=== PATIENT | male | born 1950 | race Caucasian/White ===

== ENCOUNTER → 2020-10-28 15:04 | Outpatient (BNVA) | payer BC, SELFPAY | PROVIDERS: Visit Provider Urology | DX: N40.1 Benign prostatic hyperplasia with lower urinary tract symptoms (principal); N13.8 Other obstructive and reflux uropathy; R39.14 Feeling of incomplete bladder emptying | CPT/HCPCS: 51798 ==

== ENCOUNTER → 2022-03-24 15:24 | Outpatient (BNVA) | payer BC, SELFPAY | PROVIDERS: PCP Family Medicine; Visit Provider Urology | DX: R97.20 Elevated prostate specific antigen [PSA] (principal) | CPT/HCPCS: 51798 ==

== ENCOUNTER → 2022-05-26 15:52 | Outpatient (BNVA) | payer BC, SELFPAY | PROVIDERS: PCP Family Medicine; Visit Provider Urology | DX: Z13.89 Encounter for screening for other disorder (principal) ==

== ENCOUNTER 2022-12-20 15:09 | Outpatient (AMB) | payer BC, SELFPAY ==
--- NOTE | 2022-12-20 15:14 | MHC.OFFVIS ---
Intake Intake Visit Reasons: PSA Follow up (set) Intake Note: Patient is present for Follow Up Urology Med: Dutasteride Antibiotic Allergy: NONE Blood Thinner: None Pharmacy: [facility] PVR: 0ML Allergies succinylcholine Allergy (Unknown, Verified 03/21/22 16:01) Unknown wasp venuum and red ants Allergy (Unknown, Uncoded 03/21/22 16:01) Unknown Medication List - Last Reconciled 12/20/22 by Jamie Lux MD dutasteride 0.5 mg PO DAILY 30 days flurazepam 15 mg PO BEDTIME PRN omeprazole 20 mg PO DAILY trazodone 50 mg PO BEDTIME HPI HPI Comments History of Present Illness Details Gregory NGUYEN is a very pleasant male. He is a patient of Dr. Ambriz. He is seen for the following urologic conditions. - elevated PSA - erectile dysfunction On dutasteride 1 tab per week PSA 3.1 up from 2.1 in April Discussed findings He would like to check testosterone in 6 months Did discuss use of tadalafil for erections 2+ prostate Elevated PSA/Abnormal HEAVEN: He presents for further evaluation of elevated PSA - PSA in range Will follow. Current management is medication with 5AR. Laboratory investigations include 09/07 3.8 up from 2.6 a year ago - US with 65gm prostate 10/07 exosome test. Intelliscore 37 11/07 PNBx - clear 05/09 2.4, 07/11 1.8, 10/09 2.8, 02/10 3.6, 05/12 2.1, 11/11 3.1 Symptoms include 09/07 , incomplete emptying, nocturia, x 2, and are worsening. Overall symptoms are mild. Therapeutic plan will be continued surveillance, medications for BPH. Review of Systems Const Denies chills and Denies fever(s) Card Reports no additional complaints and Denies syncope Resp Denies cough GI Denies abdominal pain and Denies heartburn Reports as per HPI and Denies change in libido Neuro Denies syncope Psych Denies change in libido Endo Denies change in libido Physical Exam Const General: cooperative, healthy appearing, comfortable and no acute distress Orientation/consciousness: patient oriented x3 HEENT Face and sinus: Yes normal facial exam Mouth: moist mucous membranes Neck Neck: Yes normal visual inspection, Yes full ROM and Yes trachea midline Chest Chest palpation & inspection: normal inspection of the chest Resp Effort & Inspection: normal respiratory effort, able to speak in complete sentences and no respiratory distress GI Inspection: Yes normal to inspection Rectal Exam - Male: Yes normal sphincter tone and Yes prostate normal Male General Exam: Yes normal external exam Penis: normal penis and circumcised Meatus: meatus normal Scrotum: scrotum normal Testes: Testes normal Back/Spine/Pelvis Cervical Spine: normal cervical lordosis Thoracic/Lumbar Spine: thoracic and lumbar spine normal to inspection Skin General skin exam: no rashes or lesions noted Neuro General: patient oriented x3, gait normal, tone normal and moves all extremities Extrem General: Yes normal to inspection and Yes capillary refill normal Office Procedures Post Void Residual Post Residual Void Post Void Residual (PVR): 0 [id number] Void Residual by ultrasound Assessment & Plan Assessment & Plan (1) Elevated PSA: Code(s): R97.20 - Elevated prostate specific antigen [PSA] (2) BPH w urinary obs/LUTS: Code(s): N40.1 - Benign prostatic hyperplasia with lower urinary tract symptoms; N13.8 - Other obstructive and reflux uropathy (3) Erectile dysfunction: Code(s): N52.9 - Male erectile dysfunction, unspecified Plan Off dutasteride Six month follow-up labs Orders: Orders Prostate Specific Antigen 6 Months R97.20 - Elevated prostate specific antigen [PSA] Testosterone, Free/Total 6 Months R97.20 - Elevated prostate specific antigen [PSA] AMB Post Void Residual by ultrasound Today N40.1 - Benign prostatic hyperplasia with lower urinary tract symptoms, R39.14 - Feeling of incomplete bladder emptying Patient Instructions: Imaging studies, laboratory and physical exam results were discussed and reviewed in detail. No major barriers to patient understanding were identified. An opportunity to ask questions regarding the treatment plan was provided. All questions were answered. The patient expressed understanding and agreement with the above treatment plan. The patient is aware they should contact our office by phone for worsening of their current condition or the appearance of new urologic symptoms. Compliance is encouraged with any medications and followup testing that is ordered. It is a privilege to participate in the urologic care of your patient. If you have any questions or concerns regarding treatment for the above conditions, or other urologic issues, please do not hesitate to contact me. The office telephone contact is [phone]. This note is constructed using voice recognition software. While every effort has been made to ensure accuracy mortgage loan underwriter errors may have been included. Yours sincerely, Dr Jamie Lux MD, [facility] - Urology Providers of Expert, Compassionate Care for the Genitourinary System Coding Level of Care Code Est Pt Level 4 (89761) Diagnoses Elevated PSA R97.20 BPH w urinary obs/LUTS N40.1; N13.8 Erectile dysfunction N52.9 CPT Codes Post Residual Void - PVR CPT Code: 52579-Tqce Void Residual by ultrasound ([id number])
== END 2022-12-20 15:46 | disposition home or self-care (01) ==
LOC: HO.HUSH 15:09
PROVIDERS: PCP Family Medicine; Visit Provider Urology
DX: R97.20 Elevated prostate specific antigen [PSA] (principal); N40.1 Benign prostatic hyperplasia with lower urinary tract symptoms; N13.8 Other obstructive and reflux uropathy; N52.9 Male erectile dysfunction, unspecified
CPT/HCPCS: 99214

== ENCOUNTER → 2022-12-20 15:09 | Outpatient (BNVA) | payer BC, SELFPAY | PROVIDERS: PCP Family Medicine; Visit Provider Urology | DX: N40.1 Benign prostatic hyperplasia with lower urinary tract symptoms (principal); N13.8 Other obstructive and reflux uropathy; R97.20 Elevated prostate specific antigen [PSA]; R39.14 Feeling of incomplete bladder emptying; N52.9 Male erectile dysfunction, unspecified; Z79.899 Other long term (current) drug therapy | CPT/HCPCS: 51798 ==

== ENCOUNTER 2023-04-24 12:35 | Day surgery (SDC) | payer MEDICARE, SELFPAY ==
[2023-04-24 13:12] VITALS: BP 130/87; PULSE 77; RESP 16; TEMP 36.7; O2SAT 99; BMI 19.5
--- NOTE | 2023-04-24 13:21 | P.CONAN_ITS ---
HPI - Anesthesia Eval Consult details Narrative: 72 yo male patient for EGD, Colonoscopy PMF Active Problems Active Problems: All Active Problems (Updated 04/24/23 @ 13:21 by Joselyn Rodas MD) Erectile dysfunction (Acute) Elevated PSA (Acute) Incomplete emptying of bladder due to benign prostatic hyperplasia (Acute) BPH w urinary obs/LUTS (Acute) PSEUDOCHOLINESTERASE DEFICIENCY Hearing loss Past Medical History Medical History History of fractured pelvis Pseudocholinesterase deficiency Osteoarthritis Hearing loss GERD (gastroesophageal reflux disease) Family History Family history of problems with anesthesia: No Surgical History Surgical History H/O removal of cyst History of shoulder surgery History of arthroplasty of right knee Hx of colonoscopy History of Problems with Anesthesia: Yes (Pseudocholinesterase deficiency.) Social History Social History Advance Directives: No Advance Directives Information Provided: Yes Meds Allergies Allergy/AdvReac Type Severity Reaction Status Date / Time succinylcholine Allergy Unknown Unknown Verified 03/21/22 16:01 wasp venuum and red ants Allergy Unknown Unknown Uncoded 03/21/22 16:01 Active Medications: Current Medications Sodium Biphosphate/Sodium Phosphate (Sodium Phosphate,Gillespie-Dibasic 133 Ml Enema) 133 ml AL ONCE PRN PRN Reason: Poor Colonoscopy Prep Results Home Medications Medication Instructions Recorded Confirmed Last Taken Type flurazepam 15 mg capsule 15 mg PO BEDTIME PRN insomnia 10/28/20 12/20/22 Unknown History omeprazole 20 mg capsule,delayed 20 mg PO DAILY 10/28/20 12/20/22 Unknown History release trazodone 50 mg tablet 50 mg PO BEDTIME 10/28/20 12/20/22 Unknown History Exam Height,Weight and Vital Signs: Height 6 ft 1 in Weight 67.132 kg Last Vital Signs Temp 98.1 F 04/24/23 13:12 Pulse 77 04/24/23 13:12 Resp 16 04/24/23 13:12 BP 130/87 04/24/23 13:12 Pulse Ox 99 04/24/23 13:12 O2 Del Method Room Air 04/24/23 13:12 Airway Mallampati Class: II TM Dist: >3cm Neck ROM: Full Loose/Missing/Broken Teeth: No (Denies broken, loose, missing teeth) Heart: RRR Lungs: CTAB Assessment and Plan Assessment Anesthesia Assessment: Anesthesia Plan Discussed and Chart Reviewed Final Anesthetic Review Family History of Problems with Anesthesia: No History of Problems with Anesthesia: Yes (Pseudocholinesterase deficiency.) NPO: Yes ASA Class: II Final Preanesthetic Review: No Changes in Pt Med Stat, Meds/Allgs Chart Reviewed, Consent Obtained/Reviewed and Anes Risks/Benef Reviewed Patient Risk: Intermediate Procedure Risk: Low Assessment/Block/Sedation in SS: Assess/Block/Sedation-SS Anesthetic Plan Anesthetic Plan: MAC: Disposition: Standard PACU
--- NOTE | 2023-04-24 15:58 | PM.OP ---
Brief Operative Note Date of Service: 04/24/23 Pre-op diagnosis: GERD, Nash's, Screening Post-op diagnosis: other (Same, Hiatal hernia, Colon polyps) Procedure: EGD with biopsies, Colonoscopy to the cecum with bx/removal of polyp at 50cm and cold snare polypectomy of Rectal polyp with placement of 3 Resolution clips Surgeon: Lex Vallecillo MD Anesthesia: MAC Was an Computer Hardware Technician used for this Procedure?: No Estimated blood loss (mL): 2.0 Pathology: other (A. EG Junction at 40cm B. Gastric antrum C. Polyp at 50cm D. Rectal polyp) Condition: stable Disposition: PACU
[2023-04-24 16:00] VITALS: BP 101/73; PULSE 76; RESP 16; TEMP 36.4; O2SAT 97
[2023-04-24 16:05] VITALS: BP 109/77; PULSE 74; RESP 16; O2SAT 99
[2023-04-24 16:15] VITALS: BP 100/60; PULSE 63; RESP 20; TEMP 36.8; O2SAT 97
--- NOTE | 2023-04-24 21:01 | OP_ITS ---
DATE OF SERVICE: 04/24/2023 SURGEON: Lex Vallecillo MD INDICATIONS: The patient presents for evaluation of gastroesophageal reflux, Nash's esophagus, and colorectal cancer screening. Full consent has been obtained from him for this, including risks of bleeding and perforation. PREOPERATIVE DIAGNOSIS: POSTOPERATIVE DIAGNOSIS: PROCEDURE PERFORMED: Esophagogastroduodenoscopy with biopsies, and colonoscopy to the cecum with biopsy and removal of polyp at 50 cm and cold snare polypectomy of rectal polyp with placement of 3 resolution clips. ESTIMATED BLOOD LOSS: COMPLICATIONS: ANESTHESIA: Monitored anesthesia care. ASSISTANTS: SPECIMENS: PREOPERATIVE DIAGNOSES: Gastroesophageal reflux, history of Nash's esophagus, history of tubular adenoma of the colon, and colorectal cancer screening. POSTOPERATIVE DIAGNOSES: Gastroesophageal reflux, history of Nash's esophagus, history of tubular adenoma of the colon, colorectal cancer screening, small hiatal hernia, mild antral gastritis, colon polyps, diverticulosis, and internal hemorrhoids. DESCRIPTION OF PROCEDURE: The patient was placed in the left lateral decubitus position. The Olympus video gastroscope was passed in the posterior oropharynx and upper esophagus under direct vision. The scope was passed slowly to the distal esophagus. The gastroesophageal junction appeared at 40 cm. There was a very minimal irregularity consistent with reflux and possible small areas of Nash esophagus, but without any evidence of esophagitis nor any lesions. The scope entered the stomach. There was a small hiatal hernia. The scope was advanced to the pylorus and the duodenum was cannulated to the descending portion. The duodenum including the bulb appeared normal without mass or ulceration. The scope was withdrawn back in the stomach. The gastric antrum and body had some mild areas of erythema and edema but no erosions or ulceration. There was good peristalsis. Biopsies were obtained from the antrum. The scope was retroflexed visualizing the proximal stomach carefully, which appeared normal, without any sign of mass or ulceration, other than some hyperplastic appearing polyps. The scope was straightened. The scope was withdrawn back to the esophagus. Biopsies were obtained at the EG junction at 40 cm. Proximal to this, the esophageal mucosa appeared normal. The scope was withdrawn from the patient. He was turned around for the colonoscopy. The digital rectal exam revealed no abnormalities. The Olympus video pediatric colonoscope was entered into the rectum and advanced to the cecum with the assistance of abdominal wall pressure. Once in the cecum, I did identify normal-appearing cecal pouch with appendiceal orifice and a normal-appearing ileocecal valve. The entire cecum and ileocecal valve appeared normal. There was transillumination of light deep in the right lower quadrant. The scope was slowly withdrawn, assessing all mucosal surfaces carefully. Preparation was excellent. At 50 cm was a flat, approximately 4 mm polyp, which was biopsied and completely removed with the cold biopsy forceps. There was a mild amount of sigmoid diverticulosis. I did not visualize any sign of colitis nor angiodysplasia. In the rectum was an approximately 6 to 8 mm polyp in the distal portion. This was removed by cold snare polypectomy and recovered by suction. Post- polypectomy there did not appear to be any residual polyp. However, there was some persistent oozing and therefore 3 resolution clips were applied to the polypectomy site with good deployment and good hemostasis. The area was observed and irrigated for 5 minutes. There was no further bleeding noted. The scope was retroflexed visualizing some internal hemorrhoids, but no other pathology. The rectal mucosa appeared normal. The scope was straightened and withdrawn from the patient. He tolerated both procedures well and was returned to the recovery area in stable condition. IMPRESSION: 1. Small hiatal hernia, gastroesophageal reflux, history of Nash's esophagus. 2. Mild gastritis. 3. Colon polyps. 4. Diverticulosis. 5. Internal hemorrhoids. PLAN: The results of the pathology will be checked. He will continue his daily omeprazole for reflux. I would recommend a repeat upper endoscopy and colonoscopy in 5 years for further screening and surveillance. He was advised not to use any aspirin or NSAIDs for 1 week. He will see me otherwise on a p.r.n. basis. MD YASMEEN Linares/MAURIZIO / [phone] [id number]
== END 2023-04-24 16:40 | disposition home or self-care (01) ==
PROVIDERS: PCP Family Medicine; Visit Provider Internal Medicine
PROC: (CPT 43239; principal; 2023-04-24 13:40)
DX: K29.70 Gastritis, unspecified, without bleeding (principal); K21.9 Gastro-esophageal reflux disease without esophagitis; K44.9 Diaphragmatic hernia without obstruction or gangrene; Z12.11 Encounter for screening for malignant neoplasm of colon; D12.5 Benign neoplasm of sigmoid colon; K62.1 Rectal polyp; K57.30 Diverticulosis of large intestine without perforation or abscess without bleeding; K64.8 Other hemorrhoids; Z79.899 Other long term (current) drug therapy
CPT/HCPCS: 43239; 45385; 45380; 88305; 88342; J2704

== ENCOUNTER 2023-06-23 14:27 | Outpatient (AMB) | payer MEDICARE, SELFPAY ==
--- NOTE | 2023-06-23 14:20 | A.OFFVIS_ITS ---
Intake Intake Visit Reasons: 6m PSA(set) Intake Note: Patient presents today for a 6 month follow-up Meds- None Allergies to Antibiotic- No Known Allergies Blood Thinner- None Patient stated he stopped taking Dutasteride last summer 2022, and the provider is aware. Venetian Blind Worker Required: No Accompanied by: Self / Same As Patient Allergies succinylcholine Allergy (Unknown, Verified 06/23/23 14:23) Unknown wasp venuum and red ants Allergy (Unknown, Uncoded 06/23/23 14:23) Unknown Medication List - Last Reconciled 06/23/23 by Jamie Lux MD dutasteride 0.5 mg PO DAILY 30 days flurazepam 15 mg PO BEDTIME PRN omeprazole 20 mg PO DAILY trazodone 50 mg PO BEDTIME HPI HPI Comments History of Present Illness Details Gregory NGUYEN is a very pleasant male. He is a patient of Dr. Ambriz. He is seen for the following urologic conditions. - elevated PSA - erectile dysfunction Telemedicine Evaluation 15 min Consultation D[employer]Visual[employer] Nicholas Video attempted Discussed findings Testosterone in range Is willing to trial tadalafil 5 mg daily 2+ prostate Erectile dysfunction has nocturnal erections Less activity during the day Does think that finasteride use had some impairment Elevated PSA/Abnormal HEAVEN: He presents for further evaluation of elevated PSA - PSA in range Will follow. Current management is medication - - prior dutasteride Laboratory investigations include 09/07 3.8 up from 2.6 a year ago - US with 65gm prostate 10/07 exosome test. Intelliscore 37 11/07 PNBx - clear 05/09 2.4, 07/11 1.8, 10/09 2.8, 02/10 3.6, 05/12 2.1, 11/11 3.1, 06/14 2.8 T 695 Symptoms include 09/07 , incomplete emptying, nocturia, x 2, and are worsening. Overall symptoms are mild. Therapeutic plan will be continued surveillance, medications for BPH. [facility] Medical History History of fractured pelvis Pseudocholinesterase deficiency Osteoarthritis Hearing loss GERD (gastroesophageal reflux disease) Surgical History H/O removal of cyst History of shoulder surgery History of arthroplasty of right knee Hx of colonoscopy Review of Systems Const All systems reviewed & are unremarkable except as noted in HPI and below Reports no additional complaints Resp Reports no additional complaints GI Reports no additional complaints Reports as per HPI Musc Reports no additional complaints Physical Exam Telemedicine evaluation Appropriate responses Regular breathing rate and rhythm HEENT Head: Yes normal to inspection Ears: hearing grossly normal bilaterally Eyes General: appearance normal, both eyes and all related structures Neck Neck: Yes normal visual inspection Chest Chest palpation & inspection: normal inspection of the chest Resp Effort & Inspection: normal respiratory effort and able to speak in complete sentences Assessment & Plan Assessment & Plan (1) Erectile dysfunction: Code(s): N52.9 - Male erectile dysfunction, unspecified (2) BPH w urinary obs/LUTS: Code(s): N40.1 - Benign prostatic hyperplasia with lower urinary tract symptoms; N13.8 - Other obstructive and reflux uropathy Plan Six-month follow-up Medications: New tadalafil take daily 5 mg PO DAILY 90 days 90 tabs 1RF sexual activity N52.9 - Male erectile dysfunction, unspecified Patient Instructions: Imaging studies, laboratory and physical exam results were discussed and reviewed in detail. No major barriers to patient understanding were identified. An opportunity to ask questions regarding the treatment plan was provided. All questions were answered. The patient expressed understanding and agreement with the above treatment plan. The patient is aware they should contact our office by phone for worsening of their current condition or the appearance of new urologic symptoms. Compliance is encouraged with any medications and followup testing that is ordered. It is a privilege to participate in the urologic care of your patient. If you have any questions or concerns regarding treatment for the above conditions, or other urologic issues, please do not hesitate to contact me. The office telephone contact is [phone]. This note is constructed using voice recognition software. While every effort has been made to ensure accuracy dulite machine bluer errors may have been included. Yours sincerely, Dr Jamie Lux MD, [facility]HR[facility] - Urology Providers of Expert, Compassionate Care for the Genitourinary System Telehealth Telehealth Location of provider rendering services: practice address Location of patient: address on file Patient Identification confirmed using: Name, : Yes Telehealth method: video Patient verbally consented to treatment: Yes Patient verbally consented to billing insurance company: Yes Patient informed of any privacy concerns related to visit: Yes Coding Level of Care Code Tele Est Pt Level 4 (85712) Diagnoses Erectile dysfunction N52.9 BPH w urinary obs/LUTS N40.1; N13.8
== END 2023-06-23 14:53 | disposition home or self-care (01) ==
LOC: HO.HUSH 14:27
PROVIDERS: PCP Family Medicine; Visit Provider Urology
DX: N52.9 Male erectile dysfunction, unspecified (principal); N40.1 Benign prostatic hyperplasia with lower urinary tract symptoms; N13.8 Other obstructive and reflux uropathy
CPT/HCPCS: 99214

== ENCOUNTER → 2023-06-23 14:27 | Outpatient (BNVA) | payer MEDICARE, SELFPAY | PROVIDERS: PCP Family Medicine; Visit Provider Urology ==

== ENCOUNTER 2024-01-30 15:44 | Outpatient (AMB) | payer MEDICARE, SELFPAY ==
--- NOTE | 2024-01-30 16:00 | A.OFFVIS_ITS ---
Intake Visit Reasons: 6M Follow Up-PSA(set) Intake Note: Patient is Present for Follow Up psa/pvr Urology Medication: Tadalafil Antibiotic Allergies:None Blood Thinners: None PVR:0 Patient states he has been having some pain in his prostate that has been ongoing issue He would like to restart Tadalafil he had stopped because it was affecting his Sleep Allergies succinylcholine Allergy (Unknown, Verified 06/23/23 14:23) Unknown wasp venuum and red ants Allergy (Unknown, Uncoded 06/23/23 14:23) Unknown Medication List - Last Reconciled 01/30/24 by Jamie Lux MD dutasteride 0.5 mg PO DAILY 30 days flurazepam 15 mg PO BEDTIME PRN omeprazole 20 mg PO DAILY tadalafil 5 mg PO DAILY 90 days trazodone 50 mg PO BEDTIME HPI Comments Details: Gregory NGUYEN is a very pleasant male. He is a patient of Dr. Ambriz. He is seen for the following urologic conditions. - elevated PSA - erectile dysfunction Prostate stable on exam PSA slight rise consistent with stopping dutasteride 2+ prostate Erectile dysfunction has nocturnal erections Less activity during the day Does think that finasteride use had some impairment Elevated PSA/Abnormal HEAVEN: He presents for further evaluation of elevated PSA - PSA in range Will follow. Current management is medication - - prior dutasteride and finasteride ceased due to impact on erections Laboratory investigations include 09/07 3.8 up from 2.6 a year ago - US with 65gm prostate 10/07 exosome test. Intelliscore 37 11/07 PNBx - clear 05/09 2.4, 07/11 1.8, 10/09 2.8, 02/10 3.6, 05/12 2.1, 11/11 3.1, 06/14 2.8 T 695, 02/12 3.4 35% Symptoms include 09/07 , incomplete emptying, nocturia, x 2, and are worsening. Overall symptoms are mild. Therapeutic plan will be continued surveillance, medications for BPH. [facility] Medical History History of fractured pelvis Pseudocholinesterase deficiency Osteoarthritis Hearing loss GERD (gastroesophageal reflux disease) Surgical History H/O removal of cyst History of shoulder surgery History of arthroplasty of right knee Hx of colonoscopy Review of Systems Const Denies chills and Denies fever(s) Card Reports no additional complaints and Denies syncope Resp Denies cough GI Denies abdominal pain and Denies heartburn Reports as per HPI and Denies change in libido Neuro Denies syncope Psych Denies change in libido Endo Denies change in libido Physical Exam Const General: cooperative, healthy appearing, comfortable and no acute distress Orientation/consciousness: patient oriented x3 HEENT Face and sinus: Yes normal facial exam Mouth: moist mucous membranes Neck Neck: Yes normal visual inspection, Yes full ROM and Yes trachea midline Chest Chest palpation & inspection: normal inspection of the chest Resp Effort & Inspection: normal respiratory effort, able to speak in complete sentences and no respiratory distress GI Inspection: Yes normal to inspection Rectal Exam - Male: Yes normal sphincter tone and Yes prostate normal Male General Exam: Yes normal external exam Penis: normal penis and circumcised Meatus: meatus normal Scrotum: scrotum normal Testes: Testes normal Back/Spine/Pelvis Cervical Spine: normal cervical lordosis Thoracic/Lumbar Spine: thoracic and lumbar spine normal to inspection Skin General skin exam: no rashes or lesions noted Neuro General: patient oriented x3, gait normal, tone normal and moves all extremities Extrem General: Yes normal to inspection and Yes capillary refill normal Office Procedures Post Void Residual Post Residual Void Post Void Residual (PVR): 0 [id number]-[id number] Void Residual by ultrasound Assessment & Plan Assessment & Plan (1) Erectile dysfunction: Code(s): N52.9 - Male erectile dysfunction, unspecified Category: Medical (2) Elevated PSA: Code(s): R97.20 - Elevated prostate specific antigen [PSA] Category: Medical (3) BPH w urinary obs/LUTS: Code(s): N40.1 - Benign prostatic hyperplasia with lower urinary tract symptoms; N13.8 - Other obstructive and reflux uropathy Category: Medical Plan Six-month follow-up PSA Orders: Orders PSA,Total (Free>4and<10) 6 Months R97.20 - Elevated prostate specific antigen [PSA] AMB Post Void Residual by ultrasound Today N40.1 - Benign prostatic hyperplasia with lower urinary tract symptoms, R39.14 - Feeling of incomplete bladder emptying Patient Instructions: Imaging studies, laboratory and physical exam results were discussed and reviewed in detail. No major barriers to patient understanding were identified. An opportunity to ask questions regarding the treatment plan was provided. All questions were answered. The patient expressed understanding and agreement with the above treatment plan. The patient is aware they should contact our office by phone for worsening of their current condition or the appearance of new urologic symptoms. Compliance is encouraged with any medications and followup testing that is ordered. It is a privilege to participate in the urologic care of your patient. If you have any questions or concerns regarding treatment for the above conditions, or other urologic issues, please do not hesitate to contact me. The office telephone contact is [phone]. This note is constructed using voice recognition software. While every effort has been made to ensure accuracy hand brim ironer errors may have been included. Yours sincerely, Dr Jamie Lux MD, [facility] - Urology Providers of Expert, Compassionate Care for the Genitourinary System Coding Level of Care Code Est Pt Level 3 (94548) Diagnoses Erectile dysfunction N52.9 Elevated PSA R97.20 BPH w urinary obs/LUTS N40.1; N13.8 CPT Codes Post Residual Void - PVR CPT Code: 19264-Jmhn Void Residual by ultrasound ([id number])
== END 2024-01-30 16:30 ==
PROVIDERS: PCP Family Medicine; Visit Provider Urology
DX: N52.9 Male erectile dysfunction, unspecified (principal); R97.20 Elevated prostate specific antigen [PSA]; N40.1 Benign prostatic hyperplasia with lower urinary tract symptoms; N13.8 Other obstructive and reflux uropathy
CPT/HCPCS: 99213

== ENCOUNTER → 2024-01-30 15:44 | Outpatient (BNVA) | payer MEDICARE, SELFPAY | PROVIDERS: PCP Family Medicine; Visit Provider Urology | DX: N40.1 Benign prostatic hyperplasia with lower urinary tract symptoms (principal); N13.8 Other obstructive and reflux uropathy; R97.20 Elevated prostate specific antigen [PSA]; N52.9 Male erectile dysfunction, unspecified | CPT/HCPCS: 51798; 99212 ==

== ENCOUNTER 2024-08-02 16:24 | Outpatient (REF) | payer MEDICARE, SELFPAY ==
--- OUTSIDE RECORDS SUMMARY | 2024-08-02 16:55 | XMS_ITS | Patient Health Record ---
Author Organization [facility] Address [address] [place] [id number] Care Team Providers Care Health Care Aide Name Role Phone Ioanaus Db Primary Care Provider eLx [place] Unavailable [phone] Allergies Allergen (clinical drug ingredient) Drug/Non Drug Allergy documented on EMR Reaction Allergy Type Onset Date Status Wasp Venom Unknown Drug Allergy Active cuckinal cholene (uncoded) Unknown Allergy Active red ant bites (uncoded) Unknown Allergy Active stings (uncoded) Unknown Allergy Act corinna Reason For Referral No Information Medications Medication SIG (Take, Route, Frequency, Duration) Notes Start Date End Date Status diazePAM 5 MG 2 Orally Once a day Active traZODone HCl 50 MG 0.5 tablet at bedtim e as needed Orally Once a day Active CeleBREX 200 MG 1 capsule with food Orally Twice a day prn Active Omeprazole 20 MG 1 capsule Orally Onc e a day Active Glucosamine 1500 Complex - Orally Active Multi Vitamin/Minerals - Orally Active Benadryl Allergy 25 MG 1 tablet as neede d Orally QHS/PRN Active Rogaine Mens 5 % as directed Externally Active Vitamin C 1000 MG 1 tablet Orally Once a day for 30 day(s) Active Immunizations Vaccine Route Administration Date Status Comme nts Influenza Unknown 03/08/2022 Administered Social History Alcohol Screen Question Answer Notes Did you have a drink containing alcohol in the p ast year? 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 Problem Diverticular disease of colon (686018569) Diverticulosis of large intestine without perforation or abscess without bleeding (K57.30) Active confirmed Problem Screening for malignant neoplasm of rectum (191156604) Encounter for screening for malignant neoplasm of rectum (Z12.12) Active confirmed Problem Gastroesophageal reflux disease without esophagitis (223026071) Gastroesophageal reflux disease without esophagitis (K21.9) Active confirmed Problem 332127938 Preprocedural examination (Z01.818) Active confirmed Problem 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 [address] [place] [address] [id number] JAY NGUYEN Self - patient is the insured Medical (General) History Medical History History ICD Code GERD--Nash's Esophagus--o n EGD in 2001; neg. EGD's in 2005 and 2010--small hiatal hernia, gastritis, but biopsies were negative for H. pylori and negative for Nash's esophagus Tubular adenomas removed in 2005 during a screening colonoscopy--negative colonoscopy in 2010 except for sigmoid diverticulosis and internal hemorrhoids Denies NM,DM,CVA,Lung disease,renal dise ase Pseudocholinesterase deficiency Osteoarthritis Hearing loss 10/2016 EGD--small hiatal her robyn, benign gastric polyps, no esophagitis or Nash's esophagus 10/2016 Colonoscopy--one inflammatory/hyp erplastic polyp Fractured pelvis and left acetabulum 201 2...no surgery needed Surgical History Surgery Date(Month/Year) Right knee arthroscopy 1998 right shoulder surgery 09/22/2021 cyst taken off of neck (dermal inclusion cyst) 04/13
--- OUTSIDE RECORDS SUMMARY | 2024-08-02 16:55 | XMS_ITS ---
Author Organization [facility] Address [address] [place] [id number] Care Team Providers Care Meter Reader Name Role Phone Db Barajas Primary Care Provider Lex [place] Unavailable [phone] REASON FOR VISIT screening, gerd Problems Problem Type SNOMED Code ICD Code Onset Dates Problem Status W/U Status Risk Notes Problem Diverticular disease of colon (020038542) Diverticulosis of large intestine without perforation or abscess without bleeding (K57.30) Active confirmed Problem Gastroesophageal reflux disease without esophagitis (920414717) Gastroesophageal reflux disease without esophagitis (K21.9) Active confirmed Problem Gastritis (5477253) Gastritis (K29.70) Active c onfirmed Problem Benign neoplasm of stomach (28854890) Gastric polyps (K31.7) Active confirmed Problem Nash esophagus (077943543) Nash esophagus (K22.70) Active confirmed Encounters Encounter Location Date Provider Diagnosis [facility] [address] [place] [id number] 04/24/2023 Lex Vallecillo Encounter for screen ing colonoscopy Z12.11 ; Colon polyps K63.5 ; Rectal polyp K62.1 ; Diverticulosis of large intestine without perforation or abscess without bleeding K57.30 ; Gastroesophageal reflux disease without esophagitis K21.9 ; Hiatal hernia K44.9 ; Gastritis K29.70 ; Gastric polyps K31.7 and Nash esophagus K22.70 Assessments Encounter Date Diagnosis (ICD Code) Assessment Notes Treatment Notes Treatment Clinical Notes Section Notes 04/24/2023 Encounter for screening colonoscopy (ICD-10 - Z12.11) 04/24/2023 Colon polyps (ICD-10 - K63.5) 04/24/2023 Rectal polyp (ICD-10 - K62.1) 04/24/2023 Diverticulosis of large intestine without perforation or abscess without bleeding (ICD-10 - K57.30) 04/24/2023 Gastroesophageal reflux disease without esophagitis (ICD-10 - K21.9) 04/24/2023 Hiatal hernia (ICD-10 - K44.9) 04/24/2023 Gastritis (ICD-10 - K29.70) 04/24/2023 Gastric polyps (ICD-10 - K31.7) 04/24/2023 Nash esophagus (ICD-10 - K22.70) Plan Of Treatment No Information Progress Notes * JAY NGUYEN M.D.: 1950 (73 yo M)Acc No.[id number]:04/24/2023 EGD and COL/MAC Patient:?JAY NGUYEN M.D. Provider:?Lex Vallecillo MD :1950???Age:72 Y???Sex:Male Francis e:04/24/2023 Address:[address] [place], [place] [id number] Pcp:Db Barajas Subjective: * Chief Complaints: * ???1. Screening, gerd. * Medical History:? Objective: * Vitals:? Assessment: * Assessment: 1.?Encounter for screening c olonoscopy - Z12.11 (Primary)???2.?Colon polyps - K63.5???3.?Rectal polyp - K62.1???4.?Diverticulosis of large intestine without perforation or abscess without bleeding - K57.30???5.?Gastroesophageal reflux disease without esophagitis - K21.9???6.?Hiatal hernia - K44.9???7.?Gastritis - K29.70???8.?Gastric polyps - K31.7???9.?Nash esophagus - K22.70??? Plan: * Treatment: * Procedure Codes:?77843 LESIO N REMOVAL COLONOSCOPY, Modifiers: [place] , [address] COLONOSCOPY AND BIOPSY, Modifiers: 59 , [place], [address] UPPER GI ENDOSCOPY, BIOPSY * * The named appointment provid er may or may not be the originator of this progress note, and it is not deemed complete until electronically signed by the appointment provider. Sign off status: Pending * Provider:?Lex Vallecillo MD Date:? 023 Generated for Leonides wahl/Ken/Dee on:?08/02/2024 04:55 PM EDT
[2024-08-02 17:56] LABS: PSA,Total (Free>4and<10) 3.08 ng/mL (0.00-4.00)
[2024-08-10 14:33] LABS: Testosterone, Free 67.9 pg/mL (30.0-135.0); Testosterone, Total 566 ng/dL (250-1100)
== END 2024-08-02 16:25 | disposition home or self-care (01) ==
LOC: HO.LAB 16:24
PROVIDERS: PCP Family Medicine; Visit Provider Urology
DX: R97.20 Elevated prostate specific antigen [PSA] (principal); N40.1 Benign prostatic hyperplasia with lower urinary tract symptoms; N13.8 Other obstructive and reflux uropathy; R39.14 Feeling of incomplete bladder emptying; Z12.5 Encounter for screening for malignant neoplasm of prostate
CPT/HCPCS: 36415; 84153; 84402; 84403

== ENCOUNTER 2024-08-28 14:47 | Outpatient (AMB) | payer MEDICARE, SELFPAY ==
--- NOTE | 2024-08-28 14:47 | MHC.OFFVIS ---
Intake Visit Reasons: PSA lab Intake Note: Patient is present for PSA/LABS Urology Medication:TADALAFIL Antibiotic Allergy:NONE Blood Thinner:NONE Engineer Byproduct Required: No Allergies succinylcholine Allergy (Unknown, Verified 08/28/24 14:48) Unknown wasp venuum and red ants Allergy (Unknown, Uncoded 08/28/24 14:48) Unknown HPI Comments Details: Gregory NGUYEN is a very pleasant male. He is a patient of Dr. Ambriz. He is seen for the following urologic conditions. - elevated PSA - erectile dysfunction Telemedicine Evaluation 15 min Consultation DoxNuvosun Nicholas Video PSA and testosterone stable Refilled daily tadalafil and on demand tadalafil PSA slight rise consistent with stopping dutasteride 2+ prostate Erectile dysfunction has nocturnal erections Less activity during the day Off finasteride and dutasteride Elevated PSA/Abnormal HEAVEN: He presents for further evaluation of elevated PSA - PSA in range Will follow. Current management is medication - - prior dutasteride and finasteride ceased due to impact on erections Laboratory investigations include 09/07 3.8 up from 2.6 a year ago - US with 65gm prostate 10/07 exosome test. Intelliscore 37 11/07 PNBx - clear 05/09 2.4, 07/11 1.8, 10/09 2.8, 02/10 3.6, 05/12 2.1, 11/11 3.1, 06/14 2.8 T 695, 02/12 3.4 35%, 08/13 3.1 T 566 Symptoms include 09/07 , incomplete emptying, nocturia, x 2, and are worsening. Overall symptoms are mild. Therapeutic plan will be continued surveillance, medications for BPH. [facility] Medical History History of fractured pelvis Pseudocholinesterase deficiency Osteoarthritis Hearing loss GERD (gastroesophageal reflux disease) Surgical History H/O removal of cyst History of shoulder surgery History of arthroplasty of right knee Hx of colonoscopy Review of Systems Const All systems reviewed & are unremarkable except as noted in HPI and below Reports no additional complaints Resp Reports no additional complaints GI Reports no additional complaints Reports as per HPI Musc Reports no additional complaints Physical Exam Telemedicine evaluation Appropriate responses Regular breathing rate and rhythm HEENT Head: Yes normal to inspection Ears: hearing grossly normal bilaterally Eyes General: appearance normal, both eyes and all related structures Neck Neck: Yes normal visual inspection Chest Chest palpation & inspection: normal inspection of the chest Resp Effort & Inspection: normal respiratory effort and able to speak in complete sentences Telehealth Telehealth Location of provider rendering services: practice address Location of patient: address on file Patient Identification confirmed using: Name, : Yes Telehealth method: voice only Patient verbally consented to treatment: Yes Patient verbally consented to billing insurance company: Yes Patient informed of any privacy concerns related to visit: Yes Assessment & Plan Assessment & Plan (1) BPH w urinary obs/LUTS: Code(s): N40.1 - Benign prostatic hyperplasia with lower urinary tract symptoms; N13.8 - Other obstructive and reflux uropathy Category: Medical (2) Erectile dysfunction: Code(s): N52.9 - Male erectile dysfunction, unspecified Category: Medical Plan 6m f/u Medications: New tadalafil On demand medication take 60 minutes before intended activity [id number] [facility] [id number] Member [id number] 20 mg PO ONCE 30 days PRN 30 tabs 1RF sexual activity N52.9 - Male erectile dysfunction, unspecified Changed From tadalafil take daily 5 mg PO DAILY 90 days 90 tabs 1RF sexual activity N52.9 - Male erectile dysfunction, unspecified To tadalafil take daily 5 mg PO DAILY 90 days 90 tabs 1RF sexual activity N52.9 - Male erectile dysfunction, unspecified Discontinued dutasteride Discontinued Reason: Patient Completed Course 0.5 mg PO DAILY 30 days 30 caps 0RF Patient Instructions: This note is constructed using voice recognition software. While every effort has been made to ensure accuracy technical assistant errors may have been included. Imaging studies, laboratory and physical exam results were discussed and reviewed in detail. No major barriers to patient understanding were identified. An opportunity to ask questions regarding the treatment plan was provided. All questions were answered. The patient expressed understanding and agreement with the above treatment plan. The patient is aware they should contact our office by phone for worsening of their current condition or the appearance of new urologic symptoms. Compliance is encouraged with any medications and followup testing that is ordered. It is a privilege to participate in the urologic care of your patient. If you have any questions or concerns regarding treatment for the above conditions, or other urologic issues, please do not hesitate to contact me. The office telephone contact is [phone]. Sincerely, Dr Jamie Lux MD, KATHRIN [facility] - Urology Compassionate Specialist Care for the Genitourinary System Coding Level of Care Code Tele Est Pt Level 3 (63020) Complex EM visit Add On G2211 Diagnoses BPH w urinary obs/LUTS N40.1; N13.8 Erectile dysfunction N52.9
== END 2024-08-28 15:56 | disposition home or self-care (01) ==
LOC: HO.HUSH 14:47
PROVIDERS: PCP Family Medicine; Visit Provider Urology
DX: N40.1 Benign prostatic hyperplasia with lower urinary tract symptoms (principal); N13.8 Other obstructive and reflux uropathy; N52.9 Male erectile dysfunction, unspecified
CPT/HCPCS: 99213; G2211

== ENCOUNTER 2025-04-29 13:04 | Outpatient (AMB) | payer MEDICARE, SELFPAY ==
--- NOTE | 2025-04-29 13:24 | MHC.OFFVIS ---
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 He is a patient of Dr. Ambriz. He is seen for the following urologic conditions. - elevated PSA - erectile dysfunction PSA and testosterone stable Refilled sildenafil. Had some degree of muscle pain with Cialis. PSA 3.5 2+ prostate Twelve month follow-up. Repeat PSA in six-month. Erectile dysfunction has nocturnal erections Less activity during the day Off finasteride and dutasteride Elevated PSA/Abnormal HEAVEN: He presents for further evaluation of elevated PSA - PSA in range Will follow. Current management is medication - - prior dutasteride and finasteride ceased due to impact on erections Laboratory investigations include 09/07 3.8 up from 2.6 a year ago - US with 65gm prostate 10/07 exosome test. Intelliscore 37 11/07 PNBx - clear 05/09 2.4, 07/11 1.8, 10/09 2.8, 02/10 3.6, 05/12 2.1, 11/11 3.1, 06/14 2.8 T 695, 02/12 3.4 35%, 08/13 3.1 T 566, 04/15 3.5 Symptoms include 09/07 , incomplete emptying, nocturia, x 2, and are worsening. Overall symptoms are mild. Therapeutic plan will be continued surveillance, medications for BPH. [facility] Medical History History of fractured pelvis Pseudocholinesterase deficiency Osteoarthritis Hearing loss GERD (gastroesophageal reflux disease) Surgical History H/O removal of cyst History of shoulder surgery History of arthroplasty of right knee Hx of colonoscopy Review of Systems Const Denies chills and Denies fever(s) Card Reports no additional complaints and Denies syncope Resp Denies cough GI Denies abdominal pain and Denies heartburn Reports as per HPI and Denies change in libido Neuro Denies syncope Psych Denies change in libido Endo Denies change in libido Physical Exam Const General: cooperative, healthy appearing, comfortable and no acute distress Orientation/consciousness: patient oriented x3 HEENT Face and sinus: Yes normal facial exam Mouth: moist mucous membranes Neck Neck: Yes normal visual inspection, Yes full ROM and Yes trachea midline Chest Chest palpation & inspection: normal inspection of the chest Resp Effort & Inspection: normal respiratory effort, able to speak in complete sentences and no respiratory distress GI Inspection: Yes normal to inspection Rectal Exam - Male: Yes normal sphincter tone and Yes prostate normal Male General Exam: Yes normal external exam Penis: normal penis and circumcised Meatus: meatus normal Scrotum: scrotum normal Testes: Testes normal Back/Spine/Pelvis Cervical Spine: normal cervical lordosis Thoracic/Lumbar Spine: thoracic and lumbar spine normal to inspection Skin General skin exam: no rashes or lesions noted Neuro General: patient oriented x3, gait normal, tone normal and moves all extremities Extrem General: Yes normal to inspection and Yes capillary refill normal Office Procedures Post Void Residual Post Residual Void Post Void Residual (PVR): 43 [id number] Void Residual by ultrasound Results AMB Urinalysis, Automated UA Leukoctes 0 Sanchez/uL Last Edit by Jemma Salas CCM on 04/29/25 13:48 UA Nitrite Negative Last Edit by Jemma Salas [facility] on 04/29/25 13:48 UA Urobilinogen 0.2 mg/dL Last Edit by Jemma Salas [facility] on 04/29/25 13:48 UA Protein 0 mg/dL Last Edit by Jemma Salas [facility] on 04/29/25 13:48 UA pH 6.0 Last Edit by Jemma Salas [facility] on 04/29/25 13:48 UA Blood 0 Juanjose/uL Last Edit by Jemma Salas [facility] on 04/29/25 13:48 UA Specific [place] 1.010 Last Edit by Jemma Salas [facility] on 04/29/25 13:48 UA Ketone Negative Last Edit by Jemma Salas [facility] on 04/29/25 13:48 UA Bilirubin 0 mg/dL Last Edit by PACO Metcalf on 04/29/25 13:48 UA Glucose 0 mg/dL Last Edit by PACO Metcalf on 04/29/25 13:48 Results Reviewed Results Reviewed: Laboratory Last Values Urine pH (Auto) 6.0 04/29/25 13:47 Specific [place] (Auto) 1.010 04/29/25 13:47 Urine Protein (Auto) 0 mg/dL 04/29/25 13:47 Glucose (UA)(Auto) 0 mg/dL 04/29/25 13:47 Urine Ketones (Auto) Negative 04/29/25 13:47 Urine Blood (Auto) 0 Juanjose/uL 04/29/25 13:47 Urine Nitrite (Auto) Negative 04/29/25 13:47 Urine Bilirubin (Auto) 0 mg/dL 04/29/25 13:47 Urine Urobilinogen (Auto) 0.2 mg/dL 04/29/25 13:47 Leukocyte Esterase (Auto) 0 Sanchez/uL 04/29/25 13:47 Assessment & Plan Assessment & Plan (1) Incomplete emptying of bladder due to benign prostatic hyperplasia: Code(s): N40.1 - Benign prostatic hyperplasia with lower urinary tract symptoms; R39.14 - Feeling of incomplete bladder emptying Category: Medical (2) Elevated PSA: Code(s): R97.20 - Elevated prostate specific antigen [PSA] Category: Medical (3) Erectile dysfunction: Code(s): N52.9 - Male erectile dysfunction, unspecified Category: Medical Plan Twelve month follow-up office Orders: Orders AMB Post Void Residual by ultrasound 04/29/25 N40.1 - Benign prostatic hyperplasia with lower urinary tract symptoms AMB Urinalysis Automated 04/29/25 N13.8 - Other obstructive and reflux uropathy, N40.1 - Benign prostatic hyperplasia with lower urinary tract symptoms PSA,Total (Free>4and<10) 6 Months R97.20 - Elevated prostate specific antigen [PSA] PSA,Total (Free>4and<10) 12 Months R97.20 - Elevated prostate specific antigen [PSA] Medications: New sildenafil administer 60 minutes before intended activity [id number] [facility] [id number] Member [id number] 50 mg PO 1XD PRN 30 tabs 0RF sexual activity 30 days N52.9 - Male erectile dysfunction, unspecified Discontinued tadalafil take daily Discontinued Reason: Patient Completed Course 5 mg PO DAILY 90 days 90 tabs 1RF sexual activity N52.9 - Male erectile dysfunction, unspecified tadalafil On demand medication take 60 minutes before intended activity [id number] [facility] [id number] Member [id number] Discontinued Reason: Patient Completed Course 20 mg PO ONCE 30 days PRN 30 tabs 1RF sexual activity N52.9 - Male erectile dysfunction, unspecified Patient Instructions: This note is constructed using voice recognition software. While every effort has been made to ensure accuracy manager athletics errors may have been included. Imaging studies, laboratory and physical exam results were discussed and reviewed in detail. No major barriers to patient understanding were identified. An opportunity to ask questions regarding the treatment plan was provided. All questions were answered. The patient expressed understanding and agreement with the above treatment plan. The patient is aware they should contact our office by phone for worsening of their current condition or the appearance of new urologic symptoms. Compliance is encouraged with any medications and followup testing that is ordered. It is a privilege to participate in the urologic care of your patient. If you have any questions or concerns regarding treatment for the above conditions, or other urologic issues, please do not hesitate to contact me. The office telephone contact is [phone]. Sincerely, Dr Jamie Lux MD, KATHRIN [facility] - Urology Compassionate Specialist Care for the Genitourinary System Coding Level of Care Code Est Pt Level 3 (82527) Complex visit Add On G2211 Diagnoses Incomplete emptying of bladder due to benign prostatic hyperplasia N40.1; R39.14 Elevated PSA R97.20 Erectile dysfunction N52.9 CPT Codes Post Residual Void - PVR CPT Code: 41570-Iffr Void Residual by ultrasound ([id number])
--- OUTSIDE RECORDS SUMMARY | 2025-04-29 17:11 | XMS_ITS | Encounter Summary ---
Author Organization [facility] Address [address] [place] [address] Phone Care Team Providers Care Beater Head Name Role Phone SnyderJose L DO Unavailable [phone] Enoch Riddle DO Unavailable [phone] Tariq Metz PA-C Unavailable [phone] Francis Ambriz MD Primary Care Provider [phone] Db Barajas DO Primary Care Provider [phone] Reason for Referral * MRI/CAT Scan - Closed Specialty Diagnoses / Procedures Referred By Semaj vázquez Referred To Contact Radiology Diagnoses Pelvic pain in male Procedures CT Pelvis Francis Ambirz MD Phone: tel: fax: [email or web address] Referral ID Status Reason Start Date Expiration Date Visits Re quested Visits Authorized [id number] Closed 02/05/2019 04/05/2019 1 1 Encounter Details Date Type Department Care Team (Late st Contact Info) Description 02/27/2019 Ancillary Orders Virtual Department [address] [place] [address] Francis Ambriz MD [address] [place] [address] Pelvic pain in male Social History Tobacco Use Types Packs/Day Years Used Date Smoking Tobacco: Never Smokeless Tobacco: Never Alcohol Use Standard Drinks/Week Comments Yes 0 (1 standard drink = 0.6 oz pur e alcohol) Sex and Gender Information Value Date Recorded Sex Assigned at Male 10/01/2021 12:51 AM EDT Legal Sex Male 9:17 AM EST Gender Identity Male 10/01/2021 12:51 AM EDT Sexual Orientation Choose not to disclose 2021 12:51 AM EDT 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 Symmetric mild narrowing and sclerosis of the SI joints which could be degenerative. Mild degenerative changes at the hips. TOTAL CTDIvol: 6.60 mGy POS [id number] Narrative 03/11/2019 4:26 PM EDT HISTORY: Left gluteal and pelvic pain, history of remote pelvic fracture. COMPARISON: CT pelvis 01/21/2011. TECHNIQUE: A contrast enhanced study performed with oral contrast. Multiplanar reformatted obtained. Automated exposure control utilized. FINDINGS: GI: No marked bowel distention or evidence of bowel wall thickening. No free air. : Distal ureters normal in caliber. Urinary bladder grossly normal in configuration. Mild-moderate prostatomegaly. Lymph nodes: No measurable lymphadenopathy. Vascular: No evidence of significant abnormalities. Musculoskeletal: No evidence of soft tissue masses or focal fluid collections. No suspicious lytic or blastic lesions within the bones. Mild degenerative changes at the hips. Mild sclerosis and narrowing of the SI joints. Mild anterior wedging of the body of L5 is stable. There is mild anterior wedging of the body of L4 which was incompletely imaged on 01/21/2011. Procedure Note Guerrero Culver MD - 03/11/2019 HISTORY: Left gluteal and pelvic pain, history of remote pelvicfracture. COMPARISON: CT pelvis 01/21/2011. TECHNIQUE: A contrast enhanced study performed with oral contrast.Multiplanar reformatted obtained. Automated exposure control utilized. FINDINGS: GI: No marked bowel distention or evidence of bowel wall thickening. Nofree air. : Distal ureters normal in caliber. Urinary bladder grossly normal inconfiguration. Mild-moderate prostatomegaly. Lymph nodes: No measurable lymphadenopathy. Vascular: No evidence of significant abnormalities. Musculoskeletal: No evidence of soft tissue masses or focal fluidcollections. No suspicious lytic or blastic lesions within the bones. Milddegenerative changes at the hips. Mild sclerosis and narrowing of the SIjoints. Mild anterior wedging of the body of L5 is stable. There is mildanterior wedging of the body of L4 which was incompletely imaged on01/21/2011. IMPRESSION: No definite explanation for left-sided pain. Symmetric mild narrowing andsclerosis of the SI joints which could be degenerative. Mild degenerativechanges at the hips. TOTAL CTDIvol: 6.60 mGy POS [id number] Francis Ambriz MD IMG CT XSPECIALTY ORDERABL ES Final Result documented in this encounter Visit Diagnoses Diagnosis Pelvic pain in male Abdominal pain, other specified site Pelvic pain in male Abdominal pain, other specified site documented in this encounter Care Teams Beater Head Relationship Specialty Start Date End Date Francis Ambriz MD [address] [place] [address] [facility] [place] [address] PCP - General Internal Medicine 09/28/18 03/15/20 Db Barajas DO [address] [place] [address] [place] [address] PCP - General Family Medicine 03/16/20 Jose L Watt DO [facility], [place] [address] [email or web address] Historical LMR Provider 03/07/17 05/29/21 Enoch Riddle DO [address] [place] [address] Historical LMR Provider 03/07/17 Tariq Metz PA-C [facility], [place] [address] [email or web address] Historical LMR Provider 03/07/17 05/29/21 documented as of this encounter Additional Source Comments The information contained in this document represents components of the legal health record. It is not the complete legal health record.[facility]
--- OUTSIDE RECORDS SUMMARY | 2025-04-29 17:11 | XMS_ITS | Encounter Summary ---
Author Organization [facility] Address [email or web address] [facility] [address] [place] [address] Phone Care Team Providers Care Tester Electronic Scale Name Role Phone Enoch Riddle DO Unavailable [phone] Db Barajas DO Primary Care Provider [phone] Encounter Details Date Type Department Care Team (Late st Contact Info) Description 02/17/2022 Ancillary Orders [facility], X-Ray - [address] [address] Fredy Garcia DO [address] [place] [address] [email or web address] Pelvic pain in male; Perineal pain in male; Low back pain, unspecified back pain laterality, unspecified chronicity, unspecified whether sciatica present Social History Tobacco Use Types Packs/Day Years Used Date Smoking Tobacco: Never Smokeless Tobacco: Never Alcohol Use Standard Drinks/Week Comments Yes 0 (1 standard drink = 0.6 oz pur e alcohol) Child or Family Care Answer Date Record ed Do you have problems with on e of the following making it difficult for you to work, study, or receive health care? No 02/23/2021 Education Answer Date Recorded Are you interested in help w ith more adult education (for example, completing high school, GED, job training, learning the Spanish language, technical skills, or developing parenting skills)? No 02/23/2021 Food Answer Date Recorded Within the past 6 months we worried whether our food would run out before we got money to buy more. Never True 02/23/2021 Within the past 6 months the food we bought just didn't last and we didn't have enough money to get more. Never True Residential Stability Answer Date Recor ded What is your housing situation today? I have abdon sing 02/23/2021 How many times have you move d in the past 12 months? Zero (I did not move) 02/23/2021 Paying for Meds Answer Date Recorded Do you have trouble paying for medicines? No 02/23/2021 Paying Utility Bills Answer Date Record ed Do you have trouble paying your heating or elect ricity bill? No 02/23/2021 Transportation Answer Date Recorded Has the lack of transportati on kept you from medical appointments or from getting medications? No 02/23/2021 Unemployment Answer Date Recorded Are you currently unemployed or working on a part-time or temporary basis, and looking for work? No 02/23/2021 Sex and Gender Information Value Date Recorded [...] documented as of this encounter Results * XR SACROILIAC JOINTS 3 OR MORE VIEWS (02/17/2022 4:49 PM EDT) Anatomical Region Laterality Modality Pelvis Computed Radiogr aphy 02/18/2022 10:2 3 AM EDT Impressions 02/18/2022 10:24 AM EDT Chronic changes at the SI joints, most likely degenerative. Narrative 02/18/2022 10:24 AM EDT XR SACROILIAC JOINTS 3 OR MORE VIEWS HISTORY: Bilateral pain. COMPARISON: CT pelvis 03/11/2019. FINDINGS: Bilateral sclerosis, joint space narrowing and spurring at the SI joints which appears similar to 03/11/2019 and is fairly symmetric. No evidence of erosions. Procedure Note Guerrero Tong MD - 02/18/2022 XR SACROILIAC JOINTS 3 OR MORE VIEWS HISTORY: Bilateral pain. COMPARISON: CT pelvis 03/11/2019. FINDINGS: Bilateral sclerosis, joint space narrowing and spurring at the SI jointswhich appears similar to 03/11/2019 and is fairly symmetric. No evidenceof erosions. IMPRESSION: Chronic changes at the SI joints, most likely degenerative. us Fredy Garcia DO IMG XR PELVIS Final Result * XR LUMBOSACRAL SPINE 4 OR MORE VIEWS (02/17/2022 4:47 PM EDT) Anatomical Region Laterality Modality L-spine Computed Radiogr aphy 02/18/2022 10:1 5 AM EDT Impressions 02/18/2022 10:22 AM EDT 1. No evidence of acute compression fractures. 2. Mild-moderate degenerative endplate changes at multiple levels. 3. Moderate lateral facet arthropathy at L3-L4 and L4-L5. Somewhat less prominent facet arthropathy at L2-L3. 4. Chronic bilateral, symmetric changes at the SI joints, most likely degenerative. Narrative 02/18/2022 10:22 AM EDT XR LUMBOSACRAL SPINE 4 OR MORE VIEWS HISTORY: Lower back and SI joint pain. COMPARISON: Lumbar spine x-ray 01/21/2011. CT pelvis 03/11/2019. FINDINGS: Mild curvature of the thoracal lumbar spine with convexity to the right. The appearance is similar to 01/21/2011. Mild concavity of the endplates and mild anterior vertebral body wedging at multiple levels is stable. No evidence of acute compression fractures. Disc spaces remain well-maintained. Mild-moderate degenerative endplate changes at multiple levels, including small-moderate size anterior lateral osteophytes. Bridging anterior osteophytes at T10-T11 and T11-T12. Moderate bilateral facet arthropathy at L3-L4 and L4-L5. Somewhat less prominent facet arthropathy at L2-L3. Bilateral sclerosis, joint space narrowing and spurring at the SI joints appears similar to 03/11/2019. Procedure Note Guerrero Tong MD - 02/18/2022 XR LUMBOSACRAL SPINE 4 OR MORE VIEWS HISTORY: Lower back and SI joint pain. COMPARISON: Lumbar spine x-ray 01/21/2011. CT pelvis 03/11/2019. FINDINGS: Mild curvature of the thoracal lumbar spine with convexity to the right.The appearance is similar to 01/21/2011. Mild concavity of the endplates andmild anterior vertebral body wedging at multiple levels is stable. Noevidence of acute compression fractures. Disc spaces remain well-maintained. Mild-moderate degenerative endplatechanges at multiple levels, including small-moderate size anterior lateralosteophytes. Bridging anterior osteophytes at T10-T11 and T11-T12. Moderate bilateral facet arthropathy at L3-L4 and L4-L5. Somewhat lessprominent facet arthropathy at L2-L3. Bilateral sclerosis, joint space narrowing and spurring at the SI jointsappears similar to 03/11/2019. IMPRESSION: 1. No evidence of acute compression fractures. 2. Mild-moderate degenerative endplate changes at multiple levels. 3. Moderate lateral facet arthropathy at L3-L4 and L4-L5. Somewhat lessprominent facet arthropathy at L2-L3. 4. Chronic bilateral, symmetric changes at the SI joints, most likelydegenerative. Fredy Garcia DO IMG XR SPINE Final Result documented in this encounter Visit Diagnoses Diagnosis Pelvic pain in male Abdominal pain, other specified site Perineal pain in male Low back pain, unspecified back pain laterality, unspecified chronicity, unspecified whether sciatica present Low back pain, unspecified back pain laterality, unspecified chronicity, unspecified whether sciatica present Pelvic pain in male Abdominal pain, other specified site Perineal pain in male documented in this encounter Additional Health Concerns Assessment Noted Time PHQ-2 Depression Total Score: 0 02/02/20 22 12:27 AM EDT documented as of this encounter Care Teams Tester Electronic Scale Relationship Specialty Start Date End Date Db Barajas DO [address] [facility] [place] [address] [email or web address] PCP - General Family Medicine 03/16/20 Enoch Riddle DO [address] [place] [address] Historical LMR Provider 03/07/17 documented as of this encounter Additional Source Comments The information contained in this document represents components of the legal health record. It is not the complete legal health record.[facility]
--- OUTSIDE RECORDS SUMMARY | 2025-04-29 17:11 | XMS_ITS | Encounter Summary ---
Author Organization [facility] Address [address] [facility] [address] [place] [address] Phone Care Team Providers Care Automotive Sales Representative Name Role Phone Enoch Riddle DO Unavailable [phone] Db Barajas DO Primary Care Provider [phone] Reason for Visit * Reason Onset Date Comments Re coding 03/04/2025 Encounter Details Date Type Department Care Team (Late st Contact Info) Description 03/04/2025 Telephone [facility] [address] [place] [address] [email or web address] Social History Tobacco Use Types Packs/Day Years Used Date Smoking Tobacco: Never Smokeless Tobacco: Never Alcohol Use Standard Drinks/Week Comments Never 0 (1 standard drink = 0.6 oz pur e alcohol) Child or Family Care Answer Date Record ed Do you have problems with on e of the following making it difficult for you to work, study, or receive health care? No 02/03/2023 Education Answer Date Recorded Are you interested in more education? Not on ramón e 02/28/2023 Are you concerned about learning? Not on file 02/28/2023 No 02/28/2023 No 02/28/2023 Food Answer Date Recorded Within the past 6 months we worried whether our food would run out before we got money to buy more. Never True 09/08/2024 Within the past 6 months the food we bought just didn't last and we didn't have enough money to get more. Never True Residential Stability Answer Date Recor ded What is your housing situation today? I have abdon madrigal 09/08/2024 How many times have you move d in the past 12 months? Zero (I did not move) 09/08/2024 Paying for Meds Answer Date Recorded Do you have trouble paying for medicines? No 09/08/2024 Paying Utility Bills Answer Date Record ed Do you have trouble paying your heating or elect ricity bill? No 09/08/2024 Transportation Answer Date Recorded Has the lack of transportati on kept you from medical appointments or from getting medications? No 09/08/2024 Unemployment Answer Date Recorded Are you currently unemployed or working on a part-time or temporary basis, and looking for work? No 02/23/2021 Digital Access Answer Date Recorded No 09/08/2024 Yes 09/08/2024 Do you have reliable internet access at home? Ye s 09/08/2024 Do you have a device (e.g., phone, tablet, computer) with a working camera? Yes 09/08/2024 Intimate Partner Violence Answer Date R ecorded Are you denied basic needs s uch as food, clothing, or medical care? No 02/05/2025 In the past 12 months have y ou been in a relationship with a person who hurts, threatens, or tries to control you? No 02/05/2025 Are you denied basic needs s uch as food, clothing, or medical care? No 02/05/2025 In the past 12 months have y ou been in a relationship with a person who hurts, threatens, or tries to control you? 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 Caller stated the patient should be called in regards to this. No further informationprovided. Please contact and advise. Central Support Hot Car Charger (Please do not reply to this user; this inbox is not monitored.) Thank you. documented in this encounter Plan of Treatment Not on file documented as of this encounter Visit Diagnoses Not on filedocumented in this encounter Additional Health Concerns Assessment Noted Time PHQ-2 Depression Total Score: 0 02/06/20 25 12:31 PM EDT documented as of this encounter Care Teams Automotive Sales Representative Relationship Specialty Start Date End Date Db Barajas DO [address] [place] [address] PCP - General Family Medicine 03/16/20 Enoch Riddle DO [address] [place] [address] Historical LMR Provider 03/07/17 documented as of this encounter Additional Source Comments The information contained in this document represents components of the legal health record. It is not the complete legal health record.[facility]
--- OUTSIDE RECORDS SUMMARY | 2025-04-29 17:11 | XMS_ITS | Patient Health Record ---
Author Organization [facility] Address [address] [place] [id number] Care Team Providers Care Forestry Fire Aide Name Role Phone IoanaTristen ingramn Primary Care Provider [place] Unavailable [phone] Allergies Allergen (clinical drug ingredient) Drug/Non Drug Allergy documented on EMR Reaction Allergy Type Onset Date Status cuckinal cholene (uncoded) Unknown Allergy Active red ant bites (uncoded) Unknown Allergy Active stings (uncoded) Unknown Allergy Act corinna Wasp Venom Unknown Drug Allergy Active Reason For Referral No Information Medications Medication SIG (Take, Route, Frequency, Duration) Notes Start Date End Date Status diazePAM 5 MG Tablet 2 Orally Once a day Active traZODone HCl 50 MG Tablet 0.5 tablet at bedtime as needed Orally Once a day Active CeleBREX 200 MG Capsule 1 capsule with f ood Orally Twice a day prn Active Omeprazole 20 MG Capsule Delayed Release 1 capsule Orally Once a day Active Glucosamine 1500 Complex - Capsule Orally Active Multi Vitamin/Minerals - Tablet Orally Active Benadryl Allergy 25 MG Tablet 1 tablet as needed Orally QHS/PRN Active Rogaine Mens 5 % Foam as directed Externally Active Vitamin C 1000 MG Tablet 1 tablet Orally Once a day; Duration: 30 day(s) Active Immunizations Vaccine Route Administration Date Status Comme nts Influenza Unknown 03/08/2022 Administered Social History Social History Drugs/Alcohol: Social Info Question Answer Notes Alcohol Screen Did you have a drink containing alcohol in the past year? 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 Retired in 2020. 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 Problem Diverticular disease of colon (643743113) Diverticulosis of large intestine without perforation or abscess without bleeding (K57.30) Active confirmed Problem Screening for malignant neoplasm of rectum (979932236) Encounter for screening for malignant neoplasm of rectum (Z12.12) Active confirmed Problem Gastroesophageal reflux disease without esophagitis (184041193) Gastroesophageal reflux disease without esophagitis (K21.9) Active confirmed Problem Preprocedural examination (069975339475456) Preprocedural examination (Z01.818) Active confirmed Problem Benign neoplasm of stomach (89461494) Gastric polyps (K31.7) Active confirmed Problem Hemorrhage of rectum and anus (494907599) Rectal bleed (K62.5) Active confirmed Problem Gastritis (3707952) Gastritis (K29.70) Active c onfirmed Problem Nash esophagus (609717312) Nash esophagus (K22.70) Active confirmed Plan Of Treatment Pending Test Test Name Order Date Pathology 04/24/2023 Future Test Test Name Order Date COLONOSCOPY 09/02/2016 UPPER GI ENDOSCOPY 01/25/2023 COLONOSCOPY 01/25/2023 Insurance Providers Payer Name Payer Address Payer Phone Subscriber Number Group Number Insured Name Patient Relationship to Insured Coverage Start Date Coverage End Date [facility] [id number] [place] [address] [phone] [id number] JAY NGUYEN Self - patient is the insured Medical (General) History Medical History History ICD Code GERD--Nash's Esophagus--o n EGD in 2001; neg. EGD's in 2005 and 2010--small hiatal hernia, gastritis, but biopsies were negative for H. pylori and negative for Nash's esophagus Tubular adenomas removed in 2005 during a screening colonoscopy--negative colonoscopy in 2010 except for sigmoid diverticulosis and internal hemorrhoids Denies SD,DM,CVA,Lung disease,renal dise ase Pseudocholinesterase deficiency Osteoarthritis Hearing loss 10/2016 EGD--small hiatal her robyn, benign gastric polyps, no esophagitis or Nash's esophagus 10/2016 Colonoscopy--one inflammatory/hyp erplastic polyp Fractured pelvis and left acetabulum 201 2...no surgery needed Surgical History Surgery Date(Month/Year) Right knee arthroscopy 1998 right shoulder surgery 09/22/2021 cyst taken off of neck (dermal inclusion cyst) 04/13
--- OUTSIDE RECORDS SUMMARY | 2025-04-29 17:11 | XMS_ITS | Encounter Summary ---
Author Organization [facility] Address [address] [place] [id number] Phone Care Team Providers Care Jukebox Checker Name Role Phone King GeorgeJose L DO Unavailable [phone] Enoch Riddle DO Unavailable [phone] Tariq Metz PA-C Unavailable [phone] Db Barajas DO Primary Care Provider [phone] Reason for Referral * Physical Therapy (Elective) - Closed Specialty Diagnoses / Procedures Referred By Semaj vázquez Referred To Contact Physical Therapy Diagnoses Encounter for rehabilitation Right Shoulder Procedures Evaluat & Treat Emma Starks MD Phone: tel: fax: [address] [address] Phone: tel: Referral ID Status Reason Start Date Expiration Date Visits Re quested Visits Authorized [id number] Closed 04/01/2020 05/21/[phone] Encounter Details Date Type Department Care Team (Latest Contact Info) Description 03/19/2020 Transcribe Orders [facility] [address] [place] [address] [phone] Emma Starks MD [address] [place] [phone] Encounter for rehabilitation (Primary Dx) Social History Tobacco Use Types Packs/Day Years [...] as of this encounter Plan of Treatment Scheduled Referrals Name Type Priority Associated Diagnoses Orde r Schedule Ambulatory referral to [facility] Outpatient Referral Routine Encounter for rehabilitation Ordered: 03/19/2020 documented as of this encounter Visit Diagnoses Diagnosis Encounter for rehabilitation- Primary documented in this encounter Care Teams Jukebox Checker Relationship Specialty Start Date End Date Db Barajas DO [address] [place] [address] [place] [address] PCP - General Family Medicine 03/16/20 Jose L Watt DO [address] [place] [address] Orthopedics Sports [facility], [place] [address] Historical LMR Provider 03/07/17 05/29/21 Enoch Riddle DO [address] [place] [address] Historical LMR Provider 03/07/17 Tariq Metz PA-C [address] [place] [address] Orthopedics Sports [facility], [place] [address] Historical LMR Provider 10/17/17 1/8/22 documented as of this encounter Additional Source Comments The information contained in this document represents components of the legal health record. It is not the complete legal health record.[facility]
--- OUTSIDE RECORDS SUMMARY | 2025-04-29 17:11 | XMS_ITS | Clinical Summary ---
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 Benadryl Active Medication-Free Text multivitamin Active OMEPRAZOLE ORAL Take 20 mg by mouth daily. Active minoxidil (ROGAINE) 5 % topical foamIndications :solution Apply topically 2 (two) times a day. Drops not foam Indications: solution Active celecoxib (CELEBREX) 200 MG capsuleIndicati ons:Pt only takes one or two a month Take 200 mg by mouth as needed. Indications: Pt only takes one or two a month Active traZODone (DESYREL) 50 MG tablet Take 50 mg by mouth nightly at bedtime. 2 Active diazePAM (VALIUM) 5 MG tablet Take 2 tablets (10 mg total) by mouth nightly at bedtime as needed for anxiety. Active ascorbic acid, vitamin C, (VITAMIN C) 1000 MG tablet Take 1,000 mg by mouth daily. Active [id number] (OSTEO BI-FLEX TRIPLE STRENGTH) 750 mg-644 mg- 30 mg-1 mg Tab Take by mouth. Act corinna Active Problems Problem Noted Date Diagnosed Date Status post bilateral inguinal hernia repair Ocular migraine 02/05/2024 Assessment & Plan (02/11/2025 3:21 PM EDT): Responds well to ibuprofen. Infrequent episodes. Assessment & Plan (02/05/2024 3:28 PM EDT): Responds well to ibuprofen. Infrequent episodes. Bilateral hearing loss 02/03/2023 Assessment & Plan (02/11/2025 3:22 PM EDT): Follows with Audiology and recently got hearing aids. Assessment & Plan (02/05/2024 3:31 PM EDT): Would like an eval with Audiology. Referral placed. Assessment & Plan (02/03/2023 4:54 PM EDT): Considering eval with Audiology Gastroesophageal reflux dise ase with esophagitis without hemorrhage 06/19/2020 Assessment & Plan (02/11/2025 3:23 PM EDT): Pt advised to avoid late night meals, spicy foods, foods high in fat, caffeine, tobacco and alcohol. Pt advised to elevate the head of the bed and reduce weight. Pt uses omeprazole if he misses doses he is symptomatic. Assessment & Plan (02/05/2024 3:32 PM EDT): Pt advised to avoid late night meals, spicy foods, foods high in fat, caffeine, tobacco and alcohol. Pt advised to elevate the head of the bed and reduce weight. Pt Uses omeprazole if he misses doses he is symptomatic. Assessment & Plan (02/03/2023 4:38 PM EDT): Pt advised to avoid late night meals, spicy foods, foods high in fat, caffeine, tobacco and alcohol. Pt advised to elevate the head of the bed and reduce weight. Pt Uses omeprazole if he misses doses he is symptomatic. Pt uses mylanta as well. Assessment & Plan (02/01/2022 2:53 PM EDT): Pt advised to avoid late night meals, spicy foods, foods high in fat, caffeine, tobacco and alcohol. Pt advised to elevate the head of the bed and reduce weight. Pt Uses omeprazole if he misses doses he is symptomatic. Assessment & Plan (10/23/2020 4:15 PM EDT): Pt advised to avoid late night meals, spicy foods, foods high in fat, caffeine, tobacco and alcohol. Pt advised to elevate the head of the bed and reduce weight. Pt Uses omeprazole if he misses doses he is symptomatic. Assessment & Plan (06/19/2020 1:32 PM EST): Pt advised to avoid late night meals, spicy foods, foods high in fat, caffeine, tobacco and alcohol. Pt advised to elevate the head of the bed and reduce weight. Pt Uses omeprazole Primary osteoarthritis 06/19/2020 Assessment & Plan (02/11/2025 3:20 PM EDT): Diffuse OA involving multiple joints LBP, neck, R knee, R shoulder. Follows HEP and uses celebrex infrequently prn. Assessment & Plan (02/05/2024 3:27 PM EDT): Diffuse OA involving multiple joints LBP, neck, R knee, R shoulder. Follows HEP and uses celebrex infrequently prn. Assessment & Plan (02/03/2023 4:31 PM EDT): Diffuse OA involving multiple joints LBP, neck, R knee, R shoulder. Follows HEP and is on celebrex prn. Assessment & Plan (06/19/2020 1:37 PM EST): Diffuse OA involving multiple joints LBP, neck, R knee, R shoulder. Follows HEP and is on celebrex prn. Benign prostatic hyperplasia without lower urinary tract symptoms 06/19/2020 Assessment & Plan (02/05/2024 3:32 PM EDT): Follows with Dr Lux. Previously on finasteride but stopped due to decreased libido. Symptoms are manageable off medication. Previous bx was negative. Assessment & Plan (02/03/2023 4:38 PM EDT): Follows with Dr Lux. Previously on finasteride but stopped due to decreased libido. Symptoms are manageable off medication. Previous bx was negative. Assessment & Plan (02/01/2022 2:57 PM EDT): Followed with Dr Lux. Previously on finasteride but stopped due to decreased libido. Symptoms are manageable off medication. Previous bx was negative. Assessment & Plan (10/23/2020 4:26 PM EDT): Followed with Dr Lux. Previously on finasteride. He was able to taper off med and symptoms did not return. Previous bx was negative. Assessment & Plan (06/19/2020 1:39 PM EST): Followed with Dr Lux. Previously on finasteride. He was able to taper off med and symptoms did not return. Previous bx was negative. Erectile dysfunction 06/19/2020 Assessment & Plan (02/11/2025 3:27 PM EDT): Manages with cialis prn and follows with Urology Dr Lux. Assessment & Plan (02/01/2022 3:00 PM EDT): Manages with cialis prn. Assessment & Plan (10/23/2020 4:17 PM EDT): Manages with cialis prn. Assessment & Plan (06/19/2020 1:40 PM EST): Manages with cialis Colon adenoma 06/19/2020 Assessment & Plan (02/11/2025 3:20 PM EDT): Follows with Dr Vallecillo in [place]. Last scope was 04/24/23 with 5 year f/u. Assessment & Plan (02/05/2024 3:25 PM EDT): Follows with Dr Vallecillo in [place]. Last scope was 04/24/23 with 5 year f/u. Assessment & Plan (02/03/2023 4:29 PM EDT): Follows with Dr Vallecillo in [place]. Last scope was 2017 with f/u due in 2021. Pt has f/u scheduled in April. Assessment & Plan (02/01/2022 2:52 PM EDT): Follows with Dr Vallecillo in [place]. Last scope was 2017 with f/u due in 2021. Pt will be scheduling soon. Assessment & Plan (10/23/2020 4:14 PM EDT): Follows with Dr Vallecillo in [place]. Last scope was 2017 with f/u due in 2021. Assessment & Plan (06/19/2020 1:41 PM EST): Follows with Dr Vallecillo in [place]. Last scope was ~ 4 years ago. Expects f/u this year. Anxiety 06/19/2020 Assessment & Plan (02/11/2025 3:27 PM EDT): Rito. Has used prozac in the past and has followed with therapist but no longer requiring treatment since he retired. Assessment & Plan (02/05/2024 3:33 PM EDT): Rito. Has used prozac in the past and has followed with therapist but no longer requiring treatment since he retired. Assessment & Plan (02/01/2022 3:02 PM EDT): Stable. Has used prozac in the past and has followed with therapist. Not as much of a concern since he has retired. Assessment & Plan (10/23/2020 4:20 PM EDT): Rito. Has used prozac in the past and has followed with therapist. Not as much of a concern since he has retired. Assessment & Plan (06/19/2020 1:44 PM EST): Rito. Has used prozac in the past and has followed with therapist. Not as much of a concern since he cut back on work Annual physical exam 06/19/2020 Assessment & Plan (02/11/2025 3:37 PM EDT): Routine fasting labs UTD 02/12 stable. Colonoscopy UTD 05/13 with 5 year f/u advised. Pt elects to have prostate ca screening and follows with Urology recent PSA 3.08 in July. Pt counseled on diet and exercise regimen. Pt to get flu shot in February and recently had covid and will defer booster for 3-6 months. Pt UTD with prevnar and td. Will look into getting shingrix at the pharmacy. Assessment & Plan (02/05/2024 3:46 PM EDT): Routine fasting labs UTD 02/12 stable. Colonoscopy UTD 05/13 with 5 year f/u advised. Pt elects to have prostate ca screening and follows with Urology recent PSA wnl. Pt counseled on diet and exercise regimen. Pt to get flu shot in February and is UTD with covid booster, prevnar and td. Will look into getting shingrix at the pharmacy. Assessment & Plan (02/03/2023 4:48 PM EDT): Routine fasting labs UTD 05/11 with values at goal. Colonoscopy due last checked 2016 with 5 year f/u advised pt schedule appointment for April. Pt elects to have prostate ca screening and follows with Urology recent PSA wnl. Pt counseled on diet and exercise regimen. Pt to RTC for flu shot and covid booster in the weeks ahead. Will look into getting shingrix at the pharmacy. UTD with td and prevnar. Assessment & Plan (02/01/2022 4:40 PM EDT): Routine fasting labs UTD. Colonoscopy due last checked 2017 with 5 year f/u advised pt schedule appointment. Pt elects to have prostate ca screening and follows with Urology. Pt counseled on diet and exercise regimen. Pt to RTC for flu shot and pneumovax in the weeks ahead. Will look into getting shingrix at the pharmacy. UTD with td and covid with booster. Assessment & Plan (10/27/2020 6:36 PM EDT): Routine fasting labs UTD. Colonoscopy UTD 2017 with 5 year f/u advised. Pt elects to have prostate ca screening. Pt counseled on diet and exercise regimen. Assessment & Plan (06/19/2020 6:58 PM EST): Pt to schedule CPE and have fasting labs drawn prior Adjustment insomnia 06/29/2018 Assessment & Plan (02/11/2025 3:23 PM EDT): Manages with trazodone and diazepam prn. Pt careful with sleep hygiene. Assessment & Plan (02/05/2024 3:31 PM EDT): Manages with trazodone and diazepam prn. Pt careful with sleep hygiene. Assessment & Plan (02/03/2023 4:33 PM EDT): Manages with trazodone and diazepam prn. Pt careful with sleep hygiene. Assessment & Plan (02/01/2022 2:53 PM EDT): Manages with trazodone and flurazepam. Pt careful with sleep hygiene. Assessment & Plan (10/23/2020 4:15 PM EDT): Manages with trazodone and flurazepam. Pt careful with sleep hygiene. Assessment & Plan (06/19/2020 1:37 PM EST): Manages with trazodone and flurazepam. Assessment & Plan (06/29/2018 5:52 PM EST): We had a 45-minute discussion regarding insomnia. Treatment with flurazepam is problematic due to its long half-life and potential to cause memory impairment and increased risk of falls. Because of this I told him he should transition to some other medication with a shorter half-life. Because of the risk of withdrawal, as well as the complexity and duration of his insomnia, I referred him to Dr. Miguelangel Vazquez for therapy and psychiatric consultation. Resolved Problems Problem Noted Date Diagnosed Date Resolved Date Bilateral recurrent inguinal hernia with obstruction and without gangrene 08/23/2024 025 Rib pain on left side 01/03/20242024 Assessment & Plan (01/03/2024 1:31 PM EDT): Left lower ribs tender. No crepitus, no movement on exam. Pt prefers CXR over left rib series. Continue heat. May take up to six weeks to resolve. OTC analgesics prn. Splinting. Topical rubs Chest trauma, initial encounter 01/03/2024 09/27/2024 Assessment & Plan (01/03/2024 1:28 PM EDT): Normal appearance, expansion of chest. Lung exam normal. Fall 01/03/2024 09/27/2024 Diarrhea after vaccination 02/23/2021 0 02/01/2022 Assessment & Plan (02/23/2021 2:51 PM EDT): Unclear if related to vaccination or to a food eat he ate two days ago. Self- limited. Since cramping and diarrhea are resolved today would not pursue stool testing at this time. Avoid dairy, citrus. Increase hydration. 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 Has done well with injections and PT and HEP. Thrombocytopenia 10/23/2020 02/11/2025 Encounters Date Type Department Care Team Description 03/05/2025 2:30 PM EDT Nurse Only [address] [address] Unknown, Unknown, Need for influenza vaccination (Primary Dx) 03/04/[address] [address] Db Barajas DO billing 03/04/2025 Telephone [facility] [address] [place] [address] Michela Hampton Re coding 02/11/2025 3:00 PM EDT Office Visit [address] [address] Db Barajas DO Annual physical exam (Primary Dx); Colon adenoma; Primary osteoarthritis, unspecified site; Ocular migraine; Bilateral hearing loss, unspecified hearing loss type; Adjustment insomnia; Gastroesophageal reflux disease with esophagitis without hemorrhage; Erectile dysfunction, unspecified erectile dysfunction type; Anxiety 02/06/2025 2:56 PM EDT - 02/06/2025 11:59 PM EDT Hospital Encounter [address] [address] Db Barajas DO Discharge Disposition: Home or Self Care 01/30/[address] [address] Michela Hampton COVID-19 Inquiry (/) from Last 3 Months Immunizations Immunization Administration Dates Next Due COVID-19 (Pre-03/13) Moderna Vaccine, mRNA, PF 0 06/22/2020,05/25/2020 COVID-19 (Pre-03/13) Pfizer Vaccine, mRNA, PF Hepatitis B Adult 12/07/2017 Influenza High-Dose Quadrivalent Preservative Fr ee IM 03/09/2022 Influenza High-Dose Trivalent Preservative Free IM 03/05/2025,03/06/2024 Influenza Quadrivalent Adjuvanted Preservative F ree IM 03/15/2023 Influenza, Unspecified Formulation 02/20/2020 Pneumococcal conjugate PCV13 10/23/2020 Pneumococcal polysaccharide PPSV23 02/10/2022 Td (adult),2 Lf Tetanus Toxoid, PF, Adsorbed ,05/22/2017 Family History Medical History Relation Comments Heart attack Brother Parkinson's disease Brother Psoriasis Brother Suicide Father Coronary artery disease Mother Stroke Mother Relation Status Comments Brother Father (Age 60) Mother (Age 79) Social History Tobacco Use Types Packs/Day Years Used Date Smoking Tobacco: Never Smokeless Tobacco: Never Tobacco Cessation:Counseling Given: Not Answered Alcohol Use Standard Drinks/Week Comments Never 0 [...] housing situation today? I have abdon sing 09/08/2024 How many times have you move [...] Not on file Not on ramón e Last Filed Vital Signs Vital Sign Reading Time Taken Comments Blood Pressure 100/60 02/11/2025 3:02 PM EDT Pulse 70 02/11/2025 3:02 PM EDT Temperature 36.8 C (98.2 F) 02/11/2025 3:02 PM EDT Respiratory Rate 18 09/08/2024 6:32 PM EDT Oxygen Saturation 97% 02/11/2025 3:02 PM EDT Inhaled Oxygen Concentration - - Weight 68 kg (150 lb) 02/11/2025 3:02 PM EDT Height 185.4 cm (6' 1 ) 08/29/2024 1:01 PM EDT Body Mass Index 19.79 08/29/2024 1:01 PM EDT Plan of Treatment Health Maintenance Due Date Last Done Comments COLOGUARD 1997 COLONOSCOPY 1997 COLORECTAL CANCER SCREENING 1997 FIT TEST 1997 FOBT 1997 SIGMOIDOSCOPY 1997 VIRTUAL COLONOSCOPY 1997 ZOSTER VACCINES (1 of 2) 2002 COVID-19 VACCINE ( season) 2025 01/25/2024, 02/21/2023, 01/28/2022, Additional history exists DEPRESSION SCREENING 02/05/2026 02/05/2025 RSV VACCINE (1 - 1-dose 75+ series) 09/19/2027 LIPID PANEL 01/25/2029 01/26/2024, 09/20, 09/03/2018 Adult Td,Tdap Booster 10/08/2034 10/08/2024, 018 HEPATITIS C SCREENING Completed 10/08/2020, 019 PNEUMOCOCCAL VACCINES (50+ years) Completed 02/10/2022, 10/23/2020 SMOKING STATUS SCREENING (Once After 26 Yrs) Completed 02/11/2025 INFLUENZA VACCINE Completed 03/05/2025, , 03/15/2023, Additional history exists HEPATITIS A VACCINES Aged Out No long er eligible based on patient's age to complete this topic HIB VACCINES Aged Out No longer eligi ble based on patient's age to complete this topic MENINGOCOCCAL VACCINES (ACWY) Aged Out No longer eligible based on patient's age to complete this topic MENINGOCOCCAL VACCINES (B) Aged Out N o longer eligible based on patient's age to complete this topic Medical Devices Implanted Type Area Glue Line Operator Device Identifier Shelf Expiration Date Model / Serial / Lot Graft Mesh 10.5cm 16cm 3dmax Polypropylene Monofilament Patch Laparoscopy Hernia Repair Right - [id number] Implanted:Qty: 1 on 09/05/2024 by Elsa Hart MD at [facility] STANDARD Right: Inguinal [employer] [id number] 03/18/2029 [id number] / / [id number] Graft Mesh 10.5cm 16cm 3dmax Polypropylene Monofilament Patch Laparoscopy Hernia Repair Left - [id number] Implanted:Qty: 1 on 09/05/2024 by Elsa Hart MD at [facility] Left: Inguinal [employer] [id number] 02/16/2029 [id number] / / [id number] Procedures Procedure Name Priority Date/Time Associated Diagnosis Comments PSA, FREE AND TOTAL Routine 04/03/2025 3 :58 PM EST Enlarged prostate with urinary obstruction Nodular prostate with urinary obstruction Elevated prostate specific antigen (PSA) CBC AND DIFFERENTIAL Routine 02/06/2025 2:56 PM EDT Anemia, unspecified type FERRITIN Routine 02/06/2025 2:56 PM EDT Anemia, unspecified type VITAMIN B12 Routine 02/06/2025 2:56 PM EDT Anemia, unspecified type FOLATE Routine 02/06/2025 2:56 PM EDT Anemia, unspecified type IRON AND IRON BINDING CAPACITY Routine 02/06/2025 2:56 PM EDT Anemia, unspecified type RETICULOCYTES Routine 02/06/2025 2:56 PM EDT Anemia, unspecified type LIPID PANEL Routine 01/26/2024 2:02 PM EDT Annual physical exam HEPATITIS C ANTIBODY, QUALITATIVE Routine 10/08/2020 2:02 PM EDT Screening for condition from Last 3 Months or Most Recently Relevant to Health Maintenance Results * Prostate Specific Antigen (PSA), Free and Total (04/03/2025 3:58 PM EST) Total PSA 3.3 <=6.5 ng/mL 04/07/2025 4:55 PM EST [facility] [employer] Free PSA 1.5 ng/mL 04/07/2025 4:55 PM EST [facility] Teachable [facility] [employer] Free PSA/PSA Ratio SEE COMMENTS ratio 04/07/2025 4:55 PM EST [facility] [employer] Comment: Ratio not calculated because clinical usefulness is not defined except in range of total PSA 4.0-10.0 ng/mL. ADDITIONAL INFORMATION The testing method is an electrochemiluminescence assay manufactured by [employer] and performed on the Modular or Doreen system. Values obtained with different assay methods or kits may be different and cannot be used interchangeably. Test results cannot be interpreted as absolute evidence for the presence or absence of malignant disease. Blood (Blood) Venipuncture / Unknown 04/03/2025 3:58 PM EST 04/03/2025 3:58 PM EST Jamie Lux MD LAB BLOOD BKR ORDERAB LES Final Result HENRIK GARNER) [facility] - [facility] [address] [phone] * Reticulocytes (02/06/2025 2:56 PM EDT) RETIC (%) 1.0 0.7 - 2.5 % [facility] RETIC (ABSOLUTE) 0.0409 0.0260 - 0.0950 M/uL [facility] RETIC HGB EQUIV 34.50 31.5 - 36.0 pg [facility] Retics, immature(%) 7.2 2.3 - 13.4 % [facility] Blood 02/06/2025 2:56 PM EDT 02/06/2025 2:58 PM EDT Db [employer] LAB BLOOD BKR ORDERABLES Final R esult Performing Organization Address City/[facility]/ZIP Co de Phone Number [address] [address] * Iron and iron binding capacity (02/06/2025 2:56 PM EDT) IRON 107 45 - 160 ug/dL [facility] IRON BINDING CAPACITY 381 228 - 428 ug/dL [facility] TRANSFERRIN SATURAT. 28 20 - 55 % [facility] Blood 02/06/2025 2:56 PM EDT 02/06/2025 2:58 PM EDT Db Barajas DO LAB BLOOD BKR ORDERABLES Final R esult [facility] [address] [place] [address] * (ABNORMAL) CBC and differential (02/06/2025 2:56 PM EDT) WBC 3.56(L) 4.00 - 11.00 K/uL [facility] RBC 4.31(L) 4.50 - 5.90 M/uL [facility] HGB 13.2(L) 13.5 - 17.5 g/dL [facility] HCT 40.3(L) 41.0 - 53.0 % [facility] PLT 157 150 - 450 K/uL [facility] MCV 93.5 80.0 - 100.0 fL [facility] MCH 30.6 27.0 - 31.0 pg [facility] MCHC 32.8 32.0 - 36.0 g/dL [facility] RDW 13.7 11.5 - 14.5 % [facility] MPV 12.9(H) 8.4 - 12.0 fL [facility] NRBC 0.00 0.00 /100 WBCs [facility] ABSOLUTE NRBC 0.00 0.00 K/uL [facility] DIFF METHOD Auto [facility] NEUTS 60.7 48.0 - 76.0 % [facility] LYMPHS 28.9 18.0 - 41.0 % [facility] MONOS 8.1 4.0 - 11.0 % [facility] EOS 0.3 0.0 - 5.0 % [facility] BASOS 1.7(H) 0.0 - 1.5 % [facility] Granulocytes, immature (%) 0.3 0.0 - 0.9 % [facility] ABSOLUTE NEUTS 2.16 1.92 - 7.60 K/uL [facility] ABSOLUTE LYMPHS 1.03 0.72 - 4.10 K/uL [facility] ABSOLUTE MONOS 0.29 0.16 - 1.10 K/uL [facility] ABSOLUTE EOS 0.01 0.00 - 0.50 K/uL [facility] ABSOLUTE BASOS 0.06 0.00 - 0.15 K/uL [facility] Granulocytes, immature 0.01 0.00 - 0.09 K/uL [facility] Blood 02/06/2025 2:56 PM EDT 02/06/2025 2:58 PM EDT Db [employer] DO LAB BLOOD BKR ORDERABLES Final R esult Performing Organization Address City/[facility]/ZIP Co de Phone Number [address] [address] * (ABNORMAL) Folate (02/06/2025 2:56 PM EDT) FOLIC ACID >20.0(H) 4.2 - 19.9 ng/mL [facility] Blood 02/06/2025 2:56 PM EDT 02/06/2025 2:58 PM EDT [employer] DO LAB BLOOD BKR ORDERABLES Final R esult Performing Organization Address [facility]/ZIP Co de Phone Number [address] [address] * Ferritin (02/06/2025 2:56 PM EDT) FERRITIN 40 30 - 400 ug/L [facility] Blood 02/06/2025 2:56 PM EDT 02/06/2025 2:58 PM EDT Db [employer] DO LAB BLOOD BKR ORDERABLES Final R esult Performing Organization Address [facility]/ZIP Co de Phone Number [address] [address] * Vitamin B12 (02/06/2025 2:56 PM EDT) VITAMIN B12 503 232 - 1,245 pg/mL [facility] Blood 02/06/2025 2:56 PM EDT 02/06/2025 2:58 PM EDT Db [employer] DO LAB BLOOD BKR ORDERABLES Final [facility] Performing Organization Address [facility] Co de Phone Number [address] [address] * (ABNORMAL) Lipid panel (01/26/2024 2:02 PM EDT) HDL 82 mg/dL [facility] Comment: Interpretation <40 mg/dL: Low HDL cholesterol (major risk factor for CHD) Greater than or equal to 60 mg/dL: High HDL cholesterol ( negative risk factor for CHD) HDL - cholesterol is affected by a number of factors, e.g. smoking, excerise, hormones, sex and age. CHOLESTEROL 143 0 - 240 mg/dL [facility] TRIGLYCERIDES 46 30 - 160 mg/dL [facility] LDL 52 50 - 129 mg/dL [facility] Comment: LDL levels in terms of risk for coronary heart disease: <100 mg/dL: Optimal 100-129 mg/dL: Near or above optimal 130-159 mg/dL: Borderline high 160-189 mg/dL: High >190 mg/dL: Very High CARDIAC RISK RATIO 1.7(L) 3.4 - 5.0 C [facility] Blood 01/26/2024 2:02 PM EDT 01/26/2024 2:05 PM EDT [employer] LAB BLOOD BKR ORDERABLES Final R [facility] Performing Organization Address [facility] Co de Phone Number [address] [phone] * Hepatitis C antibody, qualitative (10/08/2020 2:02 PM EDT) HCV NON-REACTIV E NON-REACTI VE [facility] Blood 10/08/2020 2:02 PM EDT 10/08/2020 2:04 PM EDT [employer] DO LAB BLOOD BKR ORDERABLES Final R esult Performing Organization Address [facility]/ZIP Co de Phone Number [address] [phone] from Last 3 Months or Most Recently Relevant to Health Maintenance Insurance MEDICARE PPO BLUE REPLACEMENT MEDICARE PPO BLUE REPLACEMENT [place] [address] MEDICARE PPO BLUE REPLACEMENT MEDICARE PPO BLUE REPLACEMENT [place] [address] MEDICARE PPO BLUE REPLACEMENT Advance Directives For more information, please contact: [phone] (9AM - 5PM [place], Monday-Monday) * Full Code (Latest Code Status on File) Date Activated Date Inactivated Comments 09/05/2024 11:15 AM Question Answer Comments Code Status Confirmed With: Patient Care Teams Lumber Press Operator Relationship Specialty Start Date End Date Db Barajas DO [address] [place] [address] [place] [address] PCP - General Family Medicine 03/16/20 Enoch Riddle DO [address] [place] [address] Historical LMR Provider 03/07/17 Additional Source Comments The information contained in this document represents components of the legal health record. It is not the complete legal health record.[facility]
--- OUTSIDE RECORDS SUMMARY | 2025-04-29 17:11 | XMS_ITS | Encounter Summary ---
Author Organization Formerly [facility] Address [address] [facility] [address] [place] [address] Phone Care Team Providers Care Finger Waver Name Role Phone HaakonJose L DO Unavailable [phone] Enoch Riddle DO Unavailable [phone] Tariq Metz PA-C Unavailable [phone] Db Barajas DO Primary Care Provider [phone] Encounter Details Date Type Department Care Team (Late st Contact Info) Description 03/02/2021 Transcribe Orders [address] [address] Db Barajas DO [address] [place] [address] [place] [address] Social History Tobacco Use Types Packs/Day Years [...] high school, GED, job training, learning the Chinese language, technical skills, or developing parenting skills)? [...] Noted Time PHQ-2 Depression Total Score: 0 10/24/19 21 3:58 PM EDT documented as of this encounter Care Teams Finger Waver Relationship Specialty Start Date End Date Db Barajas DO [address] [place] [address] [place] [address] PCP - General Family Medicine 03/16/20 Jose L Watt DO [address] [place] [address] [facility] [place] [address] [email or web address] Historical LMR Provider 03/07/17 05/29/21 Enoch Riddle DO [address] [place] [address] Historical LMR Provider 03/07/17 Tariq Metz PA-C [address] [place] [address] [facility], [place] [address] [email or web address] Historical LMR Provider 03/07/17 05/29/21 documented as of this encounter Additional Source Comments The information contained in this document represents components of the legal health record. It is not the complete legal health record.[facility]
--- OUTSIDE RECORDS SUMMARY | 2025-04-29 17:11 | XMS_ITS | Encounter Summary ---
Author Organization [facility] Address [address] [place] [address] Phone Care Team Providers Care Blacksmith Hammer Operator Name Role Phone [place]alo[place]Jose L DO Unavailable [phone] Enoch Riddle DO Unavailable [phone] Tariq Metz PA-C Unavailable [phone] Francis Ambriz MD Primary Care Provider [phone] Db Barajas DO Primary Care Provider [phone] Encounter Details Date Type Department Care Team (Late st Contact Info) Description 07/16/2019 Procedure Pass [facility], [address] [address] Social History Tobacco Use Types Packs/Day Years [...] Diagnoses Not on filedocumented in this encounter Care Teams Blacksmith Hammer Operator Relationship Specialty Start Date End Date Francis Ambriz MD 4 [facility], [place] [address] PCP - General Internal Medicine 09/28/18 03/15/20 Db Barajas DO [address] [facility] [place] [address] PCP - General Family Medicine 03/16/20 Jose L Watt DO 4 [facility], [place] [address] Historical LMR Provider 03/07/17 05/29/21 Enoch Riddle DO [address] [place] [address] Historical LMR Provider 03/07/17 Tariq Metz PA-C 4 [facility] [place] [address] Historical LMR Provider 03/07/17 05/29/21 documented as of this encounter Additional Source Comments The information contained in this document represents components of the legal health record. It is not the complete legal health record.[facility]
--- OUTSIDE RECORDS SUMMARY | 2025-04-29 17:12 | XMS_ITS | Encounter Summary ---
Author Organization [facility] Address [address] [facility] [address] [place] [address] Phone Care Team Providers Care Customer Contact Sales Associate Name Role Phone Enoch Riddle DO Unavailable [phone] Db Barajas DO Primary Care Provider [phone] Encounter Details Date Type Department Care Team (Late st Contact Info) Description 09/05/2024 Procedure Pass [place] Admitting Dept - Virtual Department [address] [place] [address] Social History Tobacco Use Types Packs/Day Years [...] as food, clothing, or medical care? No 09/08/2024 In the past 12 months have y ou been in a relationship with a person who hurts, threatens, or tries to control you? No 09/08/2024 Are you denied basic needs s uch as food, clothing, or medical care? No 09/08/2024 In the past 12 months have y ou been in a relationship with a person who hurts, threatens, or tries to control you? 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 Wish to be (Past 1 Month) No 09/08/2024 12:54 PM EDT Johnson Garrido RN 2. Non-Specific Active Suicidal Thoughts (Past 1 Month) No 09/08/2024 12:54 PM EDT Johnson Garrido RN 6. Suicidal Behavior (Lifetime) No 09/08/2024 12:54 PM EDT Johnson Garrido RN documented as of this encounter Plan of Treatment Not on file documented as of this encounter Visit Diagnoses Not on filedocumented in this encounter Additional Health Concerns Assessment Noted Time PHQ-2 Depression Total Score: 0 02/05/20 24 2:58 PM EDT documented as of this encounter Care Teams Customer Contact Sales Associate Relationship Specialty Start Date End Date Db Barajas DO [address] [facility] [place] [address] [email or web address] PCP - General Family Medicine 03/16/20 Enoch Riddle DO [address] [place] [address] Historical LMR Provider 03/07/17 documented as of this encounter Additional Source Comments The information contained in this document represents components of the legal health record. It is not the complete legal health record.[facility]
--- OUTSIDE RECORDS SUMMARY | 2025-04-29 17:12 | XMS_ITS | Encounter Summary ---
Author Organization [facility] Address [address] [facility] [address] [place] [address] Phone Care Team Providers Care Measurement Department Chief Clerk Name Role Phone Enoch Riddle DO Unavailable [phone] Db Barajas DO Primary Care Provider [phone] Reason for Visit * Reason Onset Date Comments Foreign Body in Skin 10/03/2024 Encounter Details Date Type Department Care Team (Late st Contact Info) Description 10/03/2024 Nurse Triage [facility] [address] [place] [address] [email or web address] Body in Skin Social History Tobacco Use Types Packs/Day Years [...] as of this encounter Progress Notes * Marisa Omer - 10/04/2024 4:51 PM EDT Gregory came into office again requesting the vaccine. He told me he had Td in 2018 and is good for 10 years if you cut yourself on something inside the home. He states after getting cut outside he had cellulitus within a day at the sight and started an antibiotic immediately. 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 He still would like the vaccine. He had Tdap in 2007 I booked him for vaccine on Monday afternoon. * Michela Hampton - 10/03/2024 4:40 PM EDT Patient called in to follow up. Please contact and advise. Central Support Client Development Consultant (Please do not reply to this user; this inbox is not monitored.) Thank you. * Marisa Omer - 10/03/2024 4:18 PM EDT Gregory came in to office to get a tetanus shot, nursing told me to tell him that they would be calling him later as they were busy. I told Gregory and he requested a call in 20 minutes as he is headed home and the cell service is not good. Call on landline at [phone] * Christin Pritchard, ELEUTERIO - 10/03/2024 2:11 PM EDT Attempted to reach Gregoryabbie with contact information. * Michela Hampton - 10/03/2024 11:39 AM EDT [facility] PEN Top Smart Phrases: Red Yellow Green Guidelines Select Red, Yellow, Green Triage Intake *Route to appropriate staff member/pool according to practice guidelines* Green Call Intake Call Back Number: (if not patient, name/relationship [phone] Green Symptom(s): Triage (Green + foreign body + thorn puncture ) When did these symptoms start? 4:30pm yesterday Have you ever experienced these symptoms before? N/A Reason patient was not scheduled? Staff advice + Tetanus booster vaccine Additional Information: N/A Schedule appointment or offer Care Alternative Options provided in RYOG Tool Follow practice guidelines for routing directions Reason for Call = TRIAGE Comment = GREEN + symptom or NURSING ADVICE REQUEST if requesting to speak with nursing documented in this encounter Plan of Treatment Not on file documented as of this encounter Visit Diagnoses Diagnosis Need for Td vaccine- Primary Need for prophylactic vaccination with tetanus-diphtheria (Td) documented in this encounter Additional Health Concerns Assessment Noted Time PHQ-2 Depression Total Score: 0 02/05/20 24 2:58 PM EDT documented as of this encounter Care Teams Measurement Department Chief Clerk Relationship Specialty Start Date End Date Db Barajas DO [address] [place] [address] [place] [address] [email or web address] PCP - General Family Medicine 03/16/20 Enoch Riddle DO [address] [place] [address] Historical LMR Provider 03/07/17 documented as of this encounter Additional Source Comments The information contained in this document represents components of the legal health record. It is not the complete legal health record.[facility]
--- OUTSIDE RECORDS SUMMARY | 2025-04-29 17:12 | XMS_ITS | Encounter Summary ---
Author Organization [facility] Address [address] [facility] [address] [place] [address] Phone Care Team Providers Care Vehicle Cost Engineer Name Role Phone Enoch Riddle DO Unavailable [phone] Db Barajas DO Primary Care Provider [phone] Encounter Details Date Type Department Care Team (Late st Contact Info) Description 01/26/2024 Transcribe Orders [facility] Specimen Processing [address] [place] [address] Db Barajas DO [address] [place] [address] [email or web address] Social History Tobacco Use Types Packs/Day Years [...] got money to buy more. Never True 02/03/2023 Within the past 6 months the food we bought just didn't last and we didn't have enough money to get more. Never True Residential Stability Answer Date Recor ded What is your housing situation today? I have abdon madrigal 02/03/2023 How many times have you move d in the past 12 months? Zero (I did not move) 02/03/2023 Paying for Meds Answer Date Recorded Do you have trouble paying for medicines? No 02/03/2023 Paying Utility Bills Answer Date Record ed Do you have trouble paying your heating or elect ricity bill? No 02/03/2023 Transportation Answer Date Recorded Has the lack of transportati on kept you from medical appointments or from getting medications? No 02/03/2023 Unemployment Answer Date Recorded Are you currently unemployed or working on a part-time or temporary basis, and looking for work? No 02/23/2021 Digital Access Answer Date Recorded No 02/03/2023 Yes 02/03/2023 Do you have reliable internet access at home? Ye s 02/03/2023 Do you have a device (e.g., phone, tablet, computer) with a working camera? 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 documented as of this encounter Plan of Treatment Not on file documented as of this encounter Visit Diagnoses Not on filedocumented in this encounter Additional Health Concerns Assessment Noted Time PHQ-2 Depression Total Score: 0 02/04/20 23 2:10 AM EDT documented as of this encounter Care Teams Vehicle Cost Engineer Relationship Specialty Start Date End Date Db Barajas DO [address] [place] [address] [place] [address] PCP - General Family Medicine 03/16/20 Enoch Riddle DO [address] [place] [address] Historical LMR Provider 03/07/17 documented as of this encounter Additional Source Comments The information contained in this document represents components of the legal health record. It is not the complete legal health record.[facility]
== END 2025-04-29 14:22 | disposition home or self-care (01) ==
LOC: HO.HUSH 13:04
PROVIDERS: PCP Family Medicine; Visit Provider Urology
DX: N40.1 Benign prostatic hyperplasia with lower urinary tract symptoms (principal); R39.14 Feeling of incomplete bladder emptying; R97.20 Elevated prostate specific antigen [PSA]; N52.9 Male erectile dysfunction, unspecified
CPT/HCPCS: 99213; G2211

== ENCOUNTER → 2025-04-29 13:04 | Outpatient (BNVA) | payer MEDICARE, SELFPAY | PROVIDERS: PCP Family Medicine; Visit Provider Urology | DX: N40.1 Benign prostatic hyperplasia with lower urinary tract symptoms (principal); R39.14 Feeling of incomplete bladder emptying; N52.9 Male erectile dysfunction, unspecified; N13.8 Other obstructive and reflux uropathy; R97.20 Elevated prostate specific antigen [PSA] | CPT/HCPCS: 51798; 81003; 99212 ==